=== PATIENT | male | born 1955 | race Caucasian/White ===

== ENCOUNTER 2023-02-10 05:57 | Day surgery (SDC) | payer MEDICARE, BC, SELFPAY ==
[2023-02-10] VITALS (7 sets, daily range): BP systolic 117–158; BP diastolic 68–103; PULSE 61–68; RESP 16–18; TEMP 36.7–37.2; O2SAT 93–99; BMI 28.0
--- NOTE | 2023-02-10 07:15 | PCM.HP.BLA ---
History and Physical Pt with new and growing lesions of the right arm and right leg. Personal history of skin cancer. [id number] Acct: [id number] Name: LIZZ MARMOLEJO Rep #: [id number] : 1955 Allergies ciprofloxacin [From Cipro] Allergy (Mild, Verified 01/11/23 10:50) Otherlevofloxacin [From Levaquin] Allergy (Mild, Verified 01/11/23 10:50) Other Medications fluticasone 100 mcg-salmeterol 50 mcg/dose blistr powdr for inhalation (Advair Diskus) 1 inh inhalation BID 01/11/23 [History Confirmed 01/11/23] lisinopril 20 mg tablet 10 mg PO DAILY 01/11/23 [History Confirmed 01/11/23] metoprolol succinate 25 mg tablet,extended release 24 hr 25 mg PO DAILY 01/11/23 [History Confirmed 01/11/23] oxycodone 10 mg tablet 10 mg PO Q8H 01/11/23 [History Confirmed 01/11/23] PFSH Medical History Back pain Cancer of bladder Cancer of prostate Cancer of skin, squamous cell COPD (chronic obstructive pulmonary disease) Osteoarthritis Skin cancer, basal cell Surgical History (Updated 01/11/23 @ 10:42 by Rosario Ventura) H/O basal cell carcinoma excision H/O squamous cell carcinoma excision Social History (Updated 01/11/23 @ 10:45 by Rosario Ventura) Smoking Status: Former smoker smoking status stop date: 01/11/22 how long ago did patient quit smoking: pt states 1 year alcohol intake: never substance use type: marijuana Exam Const General: cooperative, healthy appearing, no acute distress and well developed Nutritional Appearance: well nourished Orientation: alert [facility] Head: normal to inspection, normocephalic and atraumatic Ears: hearing grossly normal bilaterally Nose: external nose normal Face and sinus: normal facial exam and face symmetric Mouth: lip normal Eyes General: appearance normal, both eyes and all related structures Eyelids: eyelids normal Pupils: PERRL EOM: EOM intact bilaterally Neck Neck: normal visual inspection and no lymphadenopathy Chest Chest palpation & inspection: normal inspection of the chest Resp Effort & Inspection: no cough Auscultation: clear to auscultation bilaterally Cardio Rate: regular rate Rhythm: regular rhythm Heart Sounds: S1 normal and S2 normal GI Inspection: normal to inspection Palpation: soft and nontender Skin Trauma: no lacerations or abrasions Other: Patient with a nodular hyperkeratotic lesion of the right lower leg medial to the anterior ambrocio. No ulceration is noted. Neuro General: patient alert, patient awake and patient oriented x3 Cognition: normal cognition Speech: speech normal Motor: muscle tone normal throughout Sensory Exam: no sensory deficits noted Extrem General: normal to inspection and no pedal edema Psych Appearance: grossly normal Affect: normal affect Speech and Movement: speech and movement normal Attitude: cooperative Judgment: judgment good Assessment & Plan Assessment/Plan (1) Neoplasm of uncertain behavior of skin: PLAN: Plan For excision lesions right arm and right leg
--- NOTE | 2023-02-10 07:30 | LES_PTH ---
PATIENT: LIZZ MARMOLEJO LOC: [facility] [place] U#:[id number] AGE/SX: 67/M ROOM: RE02/10/[address]: Dr. Natasha Huerta MD : 1955 BED: DIS: 02/10/2023 SPEC #: [id number] RECD: 02/10/23 11:08 STATUS: YAZMIN FRASERMarta #: [id number] CARLOS ENRIQUE: 02/10/23 07:[address]: Natasha Huerta DEPT: SURGICAL PATHOLOGY RECD BY: Deyanira Pepper Tissues: A - Skin of leg, NOS B - Skin of arm Procedures: Surgery Specimen Level IV HEADER OPERATION: Excision lesion lower leg, right arm PRE-OP DIAGNOSIS: Neoplasm of lesion lower leg, lesion right arm TISSUE SUBMITTED: A - Lesion right leg, B - Lesion right arm MICROSCOPIC DIAGNOSIS A. Lesion of right leg, biopsy: Consistent with cicatrix. Mild acanthosis and superficial chronic dermatitis. Hyperkeratosis. Mild elastosis. No evidence of malignancy. B. Lesion of right arm, biopsy: [place]. Focal chronic folliculitis. Actinic change and extensive solar elastosis. Focal hyperkeratosis. AM:rico 02/11/2023 MICROSCOPIC DESCRIPTION Slides are reviewed. GROSS DESCRIPTION A - Received in fixative is one container labeled with the patient's name and designated lesion right leg. The specimen consists of a light faust fragment of excised skin measuring 1.3 x 0.9 x 0.2 cm. The specimen is inked, serially sectioned and totally submitted in one cassette. B - Received in fixative is one container labeled with the patient's name and designated lesion right arm. The specimen consists of a light faust fragment of excised skin measuring 1.7 x 0.6 x 0.2 cm. The specimen is inked, serially sectioned and totally submitted in one cassette. / AM:rico 02/10/2023 TC:3 CPT: 04497 x2
[2023-02-10] MEDS: Lidocaine 1% /Epi 1:100 9 ML, Sodium Bicarbonate 1 MEQ OPERA.SITE (07:46)
--- NOTE | 2023-02-10 08:19 | DCINST_ITS ---
Discharge Instructions Diet Discharge Diet: No restrictions Activity Additional Activity Instructions:: Keep your right leg and right arm as much as possible to decrease bleeding and swelling. Dressing / Incision Additional Dressing/Incision Instructions:: May remove the dressing to shower, but apply antibiotic ointment, gauze, and wrap following this. Follow Up Care Please Follow Up With: Natasha Huerta MD Test Results: Test results from this visit will be discussed in further detail at your follow- up appointment, if applicable. Discharge Plan Admission Attending Provider: Ntaasha Huerta Primary Care Provider: STEPHANY WILSON Discharge Orders/Prescriptions Prescriptions: No Action fluticasone propion-salmeterol [Advair Diskus] 100-50 mcg/dose blister with device 1 inh inhalation BID benzonatate 100 mg capsule 100 mg PO BID PRN cetirizine [All Day Allergy (cetirizine)] 10 mg tablet 10 mg PO DAILY PRN cyclobenzaprine 10 mg tablet 10 mg PO BID PRN Patient Comments: TAKE 1 TABLET ONCE OR TWICE DAILY NEEDED FOR SPASMS hydroxyzine HCl 25 mg tablet 25 mg PO BID PRN lidocaine 5 % adhesive patch,medicated 1 patch topical DAILY Rx Instructions: leave on most painful area for up to 12 hrs lisinopril 10 mg tablet 10 mg PO DAILY lisinopril 20 mg tablet 20 mg PO DAILY methylprednisolone [Methylpred DP] 4 mg tablets,dose pack See Rx Instructions PO PER PKG DIR Rx Instructions: PO PER PKG DIR omeprazole 20 mg capsule,delayed release(DR/EC) 20 mg PO DAILY oxycodone-acetaminophen 5-325 mg tablet 1 tab PO Q8H PRN triamcinolone acetonide 0.1 % cream 1 applic topical DAILY cephalexin 500 mg capsule 500 mg PO BID Qty: 10 0RF Referrals / Follow Up: STEPHANY WILSON [Other] Disposition Disposition (needs filled in before D/C Order can be placed): Home, Self Care
--- NOTE | 2023-02-10 08:22 | OP.PCM_ITS ---
Report of Operation Date of Procedure: 02/10/23 Pre-Operative Diagnosis: lesion right arm and right leg Post-Operative Diagnosis: same Surgery/Procedure Performed:: Excision lesion right leg (1.5cm) and right arm (2.0cm). Surgeon: Natasha Huerta Type of Anesthesia: Local Special Medications: Buffered lidocaine with epi Specimen's removed: same Estimated Blood Loss (mL): minimal Description of Procedure: The procedure of excision lesion right lower arm and right leg were reviewed with the patient. Informed consent was obtained. The patient was brought to the operating room and placed on the operating room table in the supine position. The right arm and leg are prepped and draped in the usual sterile fashion. Buffered 1% lidocaine with epinephrine is used for local anesthetic. This is instilled with a 30-gauge needle. An elliptical incision is made over the lesion of the arm and leg. A full- thickness excision is performed. Hemostasis is controlled with cautery. The incisions are then closed with interrupted silk suture. On the right arm, an additional running chromic suture was used to further approximate the wound edges. Xeroform gauze and a Coban wrap was used to dress both sites. He tolerated the procedure well and was taken to the recovery area in an awake and stable condition. Needle and sponge counts are correct. Complications none Admit VTE Documentation VTE Mechan Device Prophylaxis: None Reason prophylaxis not ordered:: Treatment Not Indicated
== END 2023-02-10 08:38 | disposition home or self-care (01) ==
LOC: SDC 05:59 → AC 06:01
PROVIDERS: Referring Provider Plastic Surgery; Visit Provider Plastic Surgery
PROC: (CPT 11402; principal; 2023-02-10 07:15)
DX: L57.8 Other skin changes due to chronic exposure to nonionizing radiation (principal); J44.9 Chronic obstructive pulmonary disease, unspecified; L30.9 Dermatitis, unspecified; L70.0 Acne vulgaris; L83 Acanthosis nigricans; L73.9 Follicular disorder, unspecified; L90.5 Scar conditions and fibrosis of skin; Z87.891 Personal history of nicotine dependence; Z85.828 Personal history of other malignant neoplasm of skin
CPT/HCPCS: 11402 ×2; 88305

== ENCOUNTER → 2023-03-22 | Outpatient (CLI) | payer MEDICARE, SELFPAY ==
--- NOTE | 2023-03-22 10:00 | MRI_ITS ---
STUDY: MR PROSTATE GLAND/ PELVIS WITH T WITHOUT CONTRAST REASON FOR EXAM: Male, 67 years old. eval disease extent, planning for XRT -- please compare to prior TECHNIQUE: Standardized fat and water weighted pulse sequences were obtained in all 3 orthogonal planes, pre-and post contrast administration. 17ml clariscan was administered for the contrast portion of the examination. COMPARISON: MRI of the prostate dated November 24, 2022. FINDINGS: Prostate gland volume/size: 6.32 x 3.81 x 3.88 cm Anterior fibromuscular stroma: Intact Peripheral zone: Infiltrated with lobular low signal tumor on both the right and left sides which demonstrate diffuse enhancement and abnormal diffusion weighted signal. The enhancing malignant mass centered in the right peripheral and transitional zone measures 3.42 x 2.14 cm in diameter. The malignant nodule in the left transitional zone measures 1.20 cm in diameter. Central zone: Diffusely heterogeneous and abnormal. Transitional zone: Diffusely heterogeneous and abnormal infiltrated with tumor Prostate capsule: Extension of a moderate to large focus of tumor material out of the left posterior side of the prostate gland into the left pelvic sidewall region. The extruded left pelvic sidewall tumor from the prostate gland measures 3.44 x 1.23 cm. The enlarged tumor infiltrating lobular posterior aspect of the prostate gland abuts the anterior aspect of the rectum but does not appear to directly invade the rectal wall. Seminal vesicles: The midline and several of the right side seminal vesicles is infiltrated with low to intermediate signal tumor. Several of the left-sided seminal vesicles are moderately dilated and distended with fluid likely due to obstruction and partial tumor infiltration. Low signal tumor is seen extending from the apex of the prostate into the opening of the left seminal vesicles and the midline, see image #10/30 series 8. Pelvic sidewall lymphadenopathy: Bony structures: No visualized lytic or blastic lesion or marrow edema in the osseous structures on this exam. No demonstrated enhancing lesion of the bony structures, however correlation with nuclear medicine bone scan is recommended Normal urinary bladder. Normal visualized small intestine. Normal visualized colon. There is no pelvic fluid. There is no pelvic mass lesion or lymphadenopathy. Normal abdominal wall. Small fat-containing inguinal hernias are present bilaterally. MRI/Pelvis W/WO Contrast IMPRESSION: Diffusely infiltrated malignant tumor material throughout the prostate gland with extension to the left side of the capsule and extension into the seminal vesicles. 1. Extension of a moderate to large focus of tumor material out of the left posterior side of the prostate gland into the left pelvic sidewall region. The extruded left pelvic sidewall tumor from the prostate gland measures 3.44 x 1.23 cm. The enlarged tumor infiltrating lobular posterior aspect of the prostate gland abuts the anterior aspect of the rectum but does not appear to directly invade the rectal wall. 2. PI-RADS 5: very high (clinically significant cancer is highly likely to be present) Reference information: Normal prostate tissue Benign prostatic hypertrophy cancer/tumor - low signal peripheral , transitional, and central zones malignancy appears as bright on DWI and low signal on ADC map Prostate imaging-reporting and data system (PI-RADS) PI-RADS 1: very low (clinically significant cancer is highly unlikely to be present) PI-RADS 2: low (clinically significant cancer is unlikely to be present) PI-RADS 3: intermediate (the presence of clinically significant cancer is equivocal) PI-RADS 4: high (clinically significant cancer is likely to be present) PI-RADS 5: very high (clinically significant cancer is highly likely to be present) PI-RADS X: component of exam technically inadequate or not performed Prostate malignancy distribution: Peripheral zone: 70-80% Transitional zone: 10-20% Central zone: 5% or less Electronically Signed: Bentley Macdonald MD at 12:14 EST ,
--- NOTE | 2023-03-22 10:04 | CT_ITS ---
EXAM: CT CHEST WITH INTRAVENOUS CONTRAST CLINICAL INDICATION: lung mass seen on CT for planning radiation -- eval for lung pathology TECHNIQUE: Helically acquired images were obtained of the chest with intravenous contrast. This CT exam was performed using one or more of the following dose reduction techniques: automated exposure control, adjustment of the mA and/or kV according to patient size, and/or use of iterative reconstruction technique. CONTRAST: IV 100mL Isovue-300 RADIATION DOSE: CTDIvol = 13.73 mGy, DLP = 446.98 mGy-cm COMPARISON: No relevant prior studies available. FINDINGS: LUNGS AND PLEURAL SPACES: Hyperexpansion of the lungs. Severe centrilobular emphysema. 1.1 cm calcified granuloma of the posterior right lower lobe. 8.2 cm focal fat collection in the posterior left lung base consistent with Bochdalek hernia. No soft tissue mass. No pneumothorax. No infiltrates. No effusion. HEART: Unremarkable. Heart size is normal. No pericardial effusion. MEDIASTINUM: Unremarkable. No mediastinal or hilar adenopathy. Esophagus is unremarkable. No hiatal hernia. THYROID: Unremarkable. No thyroid lesions. BONES/JOINTS: Degenerative changes throughout the spine. VASCULATURE: Unremarkable. Thoracic aorta is non-dilated. No thoracic aortic dissection. No obvious central pulmonary embolism although this study was not performed with the pulmonary embolism protocol. CT/Chest WITH Contrast IMPRESSION: 1. Severe centrilobular emphysema. 2. Calcified granuloma in the right lower lobe. 3. Large fatty mass in the posterior left lower hemithorax consistent with Bochdalek hernia. Electronically Signed: Kenyon Mary MD at 18:35 EST ,
[2023-03-22 15:54] LABS: CREATININE FINGERSTICK < 0.9 mg/dL (0.70-1.30); EGFR FINGERSTICK > 60.0000 mL/min (>60)
== END | disposition home or self-care (01) ==
LOC: MRI 09:56
PROVIDERS: Referring Provider Student in an Organized Health Care Education/Training Program; Visit Provider Student in an Organized Health Care Education/Training Program
DX: C61 Malignant neoplasm of prostate (principal); R91.8 Other nonspecific abnormal finding of lung field
CPT/HCPCS: 71260; 72197; A9575; Q9967

== ENCOUNTER 2023-05-20 10:10 | Day surgery (SDC) | payer MEDICARE, SELFPAY ==
--- NOTE | 2023-05-20 | LES_PTH ---
PATHOLOGY RESULTS PATIENT: LIZZ MARMOLEJO LOC: [facility] – [place] U#:[id number] AGE/SX: 67/M ROOM: RE05/20/[address]: Dr. 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 SJ:rico 05/20/2023 MICROSCOPIC DIAGNOSIS Skin lesion of left shoulder, re-excision: Cicatrix. Actinic keratosis with mild and focal moderate atypia. Solar elastosis. No evidence of carcinoma. AM:rico 05/23/2023 COMMENT Reference is made to the patient's previous left clavicular neck shave biopsy ([facility] [id number]). Case has been reviewed in consultation with Dr. Longo who concurs with the above diagnosis. IDC:[email or web address] MICROSCOPIC DESCRIPTION Slides are reviewed. GROSS DESCRIPTION Received fresh for frozen section diagnosis labeled with the patient's name is a specimen designated squamous cell carcinoma of left shoulder . The specimen consists of an ovoid piece of faust-white skin measuring 1.5 x 1.0 x 0.3 cm. The specimen is oriented. The specimen is inked as follows: 12 o'clock - yellow, 6 o'clock - green, 3 o'clock - black and 9 o'clock - blue. The specimen is serially sectioned and submitted entirely for frozen section diagnosis in two cassettes as follows: 1 - tips, 12 o'clock and 6 o'clock tips, 2 - rest of the specimen. / OSMEL:rico 05/20/2023 TC:? CPT: 21182, 21857, 23590
--- OUTSIDE RECORDS SUMMARY | 2023-05-20 10:18 | XMS RPT_ITS | CCD ---
Author Name Unknown Address [id number] [place] [address] Organization [facility] Care Team Providers Care Barrel Assembly Inspector Name Role Phone Unavailable Unavailable Unavailable Fortune, Skye Keke Unavailable Unavailable Fortune, Skye Keke Unavailable Unavailable Delong, Malik W Unavailable Unavailable Delong, Malik W Unavailable Unavailable Delong, Malik W Unavailable Unavailable Delong, Malik W Unavailable Unavailable Delong, Malik Carpenter Attending Unavailable Ritenour, Mike E Primary Care Unavailable Delong, Malik Carpenter Attending Unavailable Ritenour, Mike E Primary Care Unavailable Delong, Malik Carpenter Attending Unavailable Ritenour, Mike E Primary Care Unavailable Delong, Malik Carpenter Admitting Unavailable Delong, Malik Carpenter Attending Unavailable Ritenour, Mike E Primary Care Unavailable Delong, Malik Carpenter Attending Unavailable Ritenour, Mike E Primary Care Unavailable Delong, Malik W Attending Unavailable Ritenour, Mike E Primary Care Unavailable Fortune, Skye Primary Care Provider Malik Delong Primary Care Provider Mike Tinsley Unavailable Unavailable Unavailable Fortune MAPPING PILOT-IT INTERN, Skye Primary Care Provider Fortune MAPPING PILOT-IT INTERN, Skye Primary Care Provider GHAZOUL, NATASHA Referring Unavailable GHAZOUL, NATASHA Attending Unavailable FORTUNE, SKYE Primary Care Unavailable GHAZOUL, NATASHA Admitting Unavailable GHAZOUL, NATASHA Referring Unavailable GHAZOUL, NATASHA Attending Unavailable GHAZOUL, NATASHA Admitting Unavailable FORTUNE, SKYE Primary Care Unavailable GHAZOUL, NATASHA Attending Unavailable SELF, SELF Referring Unavailable FORTUNE, SKYE Primary Care Unavailable GHAZOUL, NATASHA Attending Unavailable SELF, SELF Referring Unavailable FORTUNE, SKYE Primary Care Unavailable GHAZOUL, NATASHA Attending Unavailable SELF, SELF Referring Unavailable FORTUNE, SKYE Primary Care Unavailable GHAZOUL, NATASHA Attending Unavailable SELF, SELF Referring Unavailable FORTUNE, SKYE Primary Care Unavailable SELF, SELF Referring Unavailable FORTUNE, SKYE Primary Care Unavailable GHAZOUL, NATASHA Attending Unavailable SELF, SELF Referring Unavailable GHAZOUL, NATASHA Attending Unavailable FORTUNE, SKYE Primary Care Unavailable SELF, SELF Referring Unavailable GHAZOUL, NATASHA Attending Unavailable FORTUNE, SKYE Primary Care Unavailable SELF, SELF Referring Unavailable GHAZOUL, NTAASHA Attending Unavailable CHAVEZ, SUSAN Primary Care Unavailable CHAVEZ, SUSAN Primary Care Unavailable FORTUNE, SKYE Primary Care Unavailable Unavailable Unavailable Sindi VERAS, Malik Brand Primary Care Provider [phone] FARIDEH BARNES Referring Unavaila ble BARNESFARIDEH GARRETT Attending Unavaila ble CHAVEZ, SUSAN Primary Care Unavailable Chavez DANIEL, Susan Primary Care Provider [phone] LATESHA SCHAEFER II Referring Unavailabl e LATESHA SCHAEFER II Attending Unavailabl e MIKE TINSLEY Primary Care Unavailabl e CHAPARRO WILSON Attending CHAPARRO Vega Referring Unavai gabriele CHAVEZ, SUSAN Primary Care Unavailable DELONGMALIK Heath Admitting Unavailable DELONG, MALIK BRAND Primary Care Unavailable DELONGMALIK Heath Admitting Unavailable DELONG, MALIK RAMIRO Primary Care Unavailable FARIDEH BARNES Referring Unavaila ble CHAVEZ, SUSAN Primary Care Unavailable FARIDEH BARNES Attending Unavaila ble BARNESFARIDEH GARRETT Referring Unavaila ble CHAVEZ, SUSAN Primary Care Unavailable FARIDEH BARNES Attending Unavaila ble CHAVEZ, SUSAN Primary Care Unavailable FARIDEH BARNES Attending Unavaila ble BARNESFARIDEH GARRETT Referring Unavaila ble BARNESFARIDEH Attending Unavaila ble CHAVEZ, SUSAN Primary Care Unavailable FARIDEH BARNES Referring Unavaila ble CHAVEZ, SUSAN Primary Care Unavailable DELONG, MALIK BRAND Admitting Unavailable DELONG, MALIK BRAND Primary Care Unavailable HELLINGER, CHAPARRO SOLORIO Admitting Unavai lable HELLINGER, CHAPARRO SOLORIO Referring Unavai lable CHAVEZ, SUSAN Primary Care Unavailable Ritenour, Dr. Mike Villanueva Primary Care Unavai lable Delong II, Dr. Malik Brand Referring Unavai lable Delong II, Dr. Malik Brand Attending Unavai lable BARNES, FARIDEH CABRAL Attending Unavaila ble CHAVEZ, SUSAN Admitting Unavailable CHAVEZ, SUSAN Primary Care Unavailable CHAVEZ, SUSAN Referring Unavailable BARNSE, FARIDEH CABRAL Attending Unavaila ble CHAVEZ, SUSAN Primary Care Unavailable Delong, Malik Attending Unavailable Ritenour, Dr. Mike Villanueva Primary Care Unavai lable Delong, Malik Referring Unavailable Ritenour, Dr. Mike Villanueva Primary Care Unavai lable Delong, Malik Attending Unavailable Delong, Malik Referring Unavailable Delong, Malik Attending Unavailable Ritenour, Dr. Mike Villanueva Primary [facility] Unavai lable Delong, Malik Referring Unavailable Ritenour, Dr. Mike Villanueva Primary [facility] Unavai lable Delong, Malik Attending Unavailable Delong, Malik Referring Unavailable Delong, Malik Attending Unavailable Ritenour, Dr. Mike Villanueva Primary [facility] Unavai lable Delong, Malik Referring Unavailable Ritenour DO, Mike Villanueva Primary Care Provider MALIK DELONG Admitting Unavailable DELONG, MALIK Carpenter Attending Unavailable RITENOUR, MIKE VILLANUEVA Primary Care Unavailabl e Allergies Allergy Classification Reported Allergen(s) Allergy Type Date of Onset Reaction(s) Facility (1 source) No Known Medication Allergies; Translations: [No Known Medication Allergies] Propensity to adverse reactions to drug (disorder) [facility] Repository (20 sources) levoFLOXacin; Translations: [Levaquin] Drug Allergy 1 Other (See Comments), [facility] (20 sources) Ciprofloxacin; Translations: [ciprofloxacin] Drug Allergy 2 Unknown, [facility] (6 sources) Ciprofloxacin; Translations: [CIPROFLOXACIN HCL] Drug Allergy 3 Other (See Comments) [facility] Repository (4 sources) levoFLOXacin; Translations: [LEVOFLOXACIN] Drug Allergy 1 [facility] Repository Medications Current Medications Medication Drug Class(es) Dates Sig (Normalized) Sig (Original) acetaminophen 325 mg / HYDROcodone bitartrate 5 mg oral tablet (1 source) Opioid Agonist Start: 03-01-2023 take 1 tablet by mouth every six hours for pain HYDROcodone-aceta minophen ([place]) 5-325 mg tablet Indications: Prostate cancer (CMS/HCC) Take 1 tablet by mouth every 6 hours if needed for severe pain (7 - 10). 10 tablet 0 03/01/2023 Active Completed/Discontinued Medications Medication Drug Class(es) Dates Sig (Normalized) Sig (Original) acetaminophen 325 mg oral tablet (1 source) Start: 03-01-2023 End: 03-01-2023 acetaminophen (Tylenol) tablet 975 mg acetaminophen 325 mg / oxyCODONE hydrochloride 5 mg oral tablet (12 sources) Opioid Agonist End: 02-28-2023 oxyCODONE-acetamin ophen (Percocet) 5-325 mg tablet Take by mouth. 0 02/28/2023 Discontinued (Duplicate order) amLODIPine 5 mg oral tablet (4 sources) Dihydropyridine Calcium Channel Benita Start: 11-08-2022 End: 02-28-2023 amLODIPine (Norvasc) 5 mg tablet Problems Active Problems Problem Classification Problem Date Documented Da te Episodic/Chronic Cancer of bladder (20 sources) H/O: malignant neoplasm; Translations: [Personal history of malignant neoplasm of bladder] Onset: 01-18-2023 01-18-2023 Episodic Cancer of prostate (8 sources) Malignant tumor of prostate; Translations: [Malignant neoplasm of prostate] Onset: 02-18-2023 03-01-2023 Chronic Cataract (2 sources) Nuclear senile cataract; Translations: [Age-related nuclear cataract, unspecified eye] Onset: 02-07-2015 01-24-2023 Chronic Essential hypertension (2 sources) Essential (primary) hypertension; Translations: [Essential (primary) hypertension] Onset: 12-20-2022 Chronic Hyperplasia of prostate (13 sources) Urinary frequency due to benign prostatic hypertrophy; Translations: [Hypertrophy (benign) of prostate with urinary obstruction and other lower urinary tract symptoms (LUTS)] Onset: 01-18-2023 01-18-2023 Chronic Other aftercare (11 sources) Antibiotic prophylaxis indicated; Translations: [Long-term (current) use of antibiotics] Episodic Other and unspecified benign neoplasm (2 sources) Benign neoplasm of skin; Translations: [Other benign neoplasm of skin, unspecified] Episodic Other diseases of bladder and urethra (13 sources) Urethral stricture; Translations: [Urethral stricture, unspecified] Onset: 01-18-2023 01-18-2023 Episodic Other lower respiratory disease (1 source) Dyspnea; Translations: [Shortness of breath] Episodic Other male genital disorders (13 sources) Male erectile dysfunction, unspecified; Translations: [Erectile dysfunction] Onset: 01-18-2023 01-18-2023 Chronic Other non-epithelial cancer of skin (4 sources) Basal cell carcinoma of face; Translations: [Basal cell carcinoma (BCC) of skin of face, unspecified part of face] Onset: 01-22-2020 01-22-2020 Chronic Other screening for suspected conditions (not mental disorders or infectious disease) (17 sources) Raised prostate specific antigen; Translations: [Elevated prostate specific antigen [PSA]] Onset: 02-25-2022 Episodic Other skin disorders (2 sources) Skin lesion; Translations: [Skin Lesion] Onset: 03-31-2022 Episodic Substance-related disorders (13 sources) Smoker; Translations: [Tobacco use disorder] Onset: 01-24-2023 01-24-2023 Chronic Unclassified (2 sources) Post Op Visit; Translations: [Post Op Visit] Onset: 05-05-2022 Past or Other Problems Problem Classification Problem Date Documented Da te Episodic/Chronic Blindness and vision defects (6 sources) Hypermetropia; Translations: [Hypermetropia, unspecified eye] Onset: 02-07-2015 01-24-2023 Episodic Cardiac dysrhythmias (7 sources) Palpitations; Translations: [Palpitations] Onset: 05-31-2022 Episodic Neoplasms of unspecified nature or uncertain behavior (11 sources) Neoplasm of uncertain behavior of skin; Translations: [Neoplasm of uncertain behavior of skin] Onset: 01-01-2022 Episodic Nonspecific chest pain (7 sources) Chest pain; Translations: [Chest pain, unspecified] Onset: 05-31-2022 Episodic Other eye disorders (2 sources) Disorder of lacrimal gland; Translations: [Dry eye syndrome of bilateral lacrimal glands] Onset: 02-07-2015 01-24-2023 Episodic Other lower respiratory disease (6 sources) Shortness of breath; Translations: [Shortness of breath] Onset: 05-31-2022 Episodic Other non-epithelial cancer of skin (20 sources) 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; Translations: [Squamous cell carcinoma of skin of right lower limb, including hip] Onset: 01-22-2020 Episodic Results Test Name Value Interpretation Reference Range Facil ity Vital Signs Date Time Vital Sign Value Performing Clinician Facility 03-01-2023 09:30-0400 Diastolic blood pressure 82 mm[Hg] Malik Delong MD Work Phone: [facility] 03-01-2023 09:30-0400 Respiratory rate 16 /min Malik Delong MD Work Phone: [facility] 03-01-2023 09:30-0400 Systolic blood pressure 140 mm[Hg] Malik Delong MD Work Phone: 2(260)243-259707 [place] [address] 03-01-2023 09:15-0400 Heart rate 62 /min Malik Delong MD Work Phone: 3(117)464-821707 [place] [address] 03-01-2023 09:00-0400 SaO2% (BldA) [Mass fraction] 96 % Malik Delong MD Work Phone: 5(208)846-946307 [place] [address] 03-01-2023 08:56-0400 Body temperature 97.39 [degF] Malik Delong MD Work Phone: [facility] 03-01-2023 06:52-0400 Body height 180.3 cm Malik Delong MD Work Phone: [facility] 03-01-2023 06:52-0400 Body mass index (BMI) [Ratio] 27.12 kg/m2 Malik Delong MD Work Phone: [facility] 03-01-2023 06:52-0400 Body weight 88.2 kg Malik Delong MD Work Phone: 4(151)652-908229 [address] 01-17-2023 07:47-0400 Body mass index (BMI) [Ratio] 28.61 kg/m2 Mike Tinsley Work Phone: FV-Dbwvbrs-Mbnunpkp [facility] 232 DO Work Phone: 01-17-2023 07:47-0400 Body surface area Derived from formula 2.08 m2 Mike Tinsley Work Phone: DM-Kfjmxzx-Weylkwvt [facility] 232 DO Work Phone: 01-17-2023 07:47-0400 Body weight 90.44 kg Mike Tinsley Work Phone: UY-Zwsrwoz-Swakbhbg [facility] 232 DO Work Phone: 01-17-2023 07:47-0400 Respiratory rate 18 /min Mike Tinsley Work Phone: KS-Gzitinl-Vhxfnvfm [facility] 232 DO Work Phone: 12-28-2022 08:20-0400 Body height 180.1 cm Malik Delong MD Work Phone: [facility] 12-28-2022 08:20-0400 Body mass index (BMI) [Ratio] 27.44 kg/m2 Malik Delong MD Work Phone: [facility] 12-28-2022 08:20-0400 Body weight 89 kg Malik Delong MD Work Phone: [facility] 12-01-2022 08:41-0400 Body mass index (BMI) [Ratio] 28.28 kg/m2 Mike Tinsley Work Phone: LX-Ywenheo-Lwpyokwu d Work Phone: 12-01-2022 08:41-0400 Body surface area Derived from formula 2.07 m2 Mike Tinsley Work Phone: TE-Lopzyce-Qvumooli d Work Phone: 12-01-2022 08:41-0400 Body weight 89.42 kg Mike Tinsley Work Phone: OK-Pxpfljm-Tgqjotaw d Work Phone: 11-10-2022 07:33-0400 Body mass index (BMI) [Ratio] 27.71 kg/m2 Mike Tinsley Work Phone: QR-Osqrglb-Sdqnhgkb [facility] 232 DO Work Phone: 11-10-2022 07:33-0400 Body surface area Derived from formula 2.06 m2 Mike Tinsley Work Phone: MF-Kjjsytg-Rtlcxuzw [facility] 232 DO Work Phone: 11-10-2022 07:33-0400 Body weight 87.6 kg Mike Tinsley Work Phone: GC-Ikebhop-Iymjkmbg [facility] 232 DO Work Phone: 11-10-2022 07:33-0400 Diastolic blood pressure 104 mm[Hg] Mike Tinsley Work Phone: JZ-Iqjllzf-Gdyorxby [facility] 232 DO Work Phone: 11-10-2022 07:33-0400 Heart rate 58 /min Mike Tinsley Work Phone: TP-Gpoylsf-Xbyiqhub [facility] 232 DO Work Phone: 11-10-2022 07:33-0400 Systolic blood pressure 146 mm[Hg] Mike Tinsley Work Phone: [facility] 232 DO Work Phone: 05-12-2022 07:55-0500 Body height 177.8 cm Mike Tinsley Work Phone: WI-Ydnfybx-Ebsvkzf Work Phone: 05-12-2022 07:55-0500 Body mass index (BMI) [Ratio] 26.89 kg/m2 Mike Tinsley Work Phone: MC-Eptyzpa-Ueqgvls Work Phone: 05-12-2022 07:55-0500 Body surface area Derived from formula 2.03 m2 Mike Tinsley Work Phone: OI-Bnztumf-Qpyizcu Work Phone: 05-12-2022 07:55-0500 Body weight 85 kg Mike Tinsley Work Phone: UQ-Uhsgnrj-Wjutrbb Work Phone: 05-12-2022 07:55-0500 Diastolic blood pressure 72 mm[Hg] Mike Tinsley Work Phone: TD-Zriikfp-Posjjab Work Phone: 05-12-2022 07:55-0500 Heart rate 73 /min Mike Tinsley Work Phone: DE-Pizqedd-Muuaeqc Work Phone: 05-12-2022 07:55-0500 Systolic blood pressure 129 mm[Hg] Mike Tinsley Work Phone: PJ-Bdepacf-Cwjljit Work Phone: 03-31-2022 11:12-0500 Body height 180.3 cm Natasha Huerta MD Work Phone: [facility] 03-31-2022 11:12-0500 Body mass index (BMI) [Ratio] 24.97 kg/m2 Natasha Huerta MD Work Phone: [facility] 03-31-2022 11:12-0500 Body temperature 97.9 [degF] Natasha Huerta MD Work Phone: [facility] 03-31-2022 11:12-0500 Body weight 81.19 kg Natasha Huerta MD Work Phone: [facility] 03-04-2022 15:08-0400 Body mass index (BMI) [Ratio] 25.83 kg/m2 Mike Tinsley Work Phone: GV-Ngnxwbg-Fbxeuivk HC 232 DO Work Phone: 03-04-2022 15:08-0400 Body surface area Derived from formula 2 m2 Mike Tinsley Work Phone: AF-Ehldsbe-Wfypbafd HC 232 DO Work Phone: 03-04-2022 15:08-0400 Body weight 81.65 kg Mike Tinsley Work Phone: [facility] 232 DO Work Phone: 03-04-2022 15:08-0400 Diastolic blood pressure 96 mm[Hg] Mike Tinsley Work Phone: [facility] 232 DO Work Phone: 03-04-2022 15:08-0400 Heart rate 72 /min Mike Tinsley Work Phone: [facility] 232 DO Work Phone: 03-04-2022 15:08-0400 Systolic blood pressure 154 mm[Hg] Mike Tinsley Work Phone: [facility] 232 DO Work Phone: 01-27-2022 13:32-0400 Body height 180.3 cm Natasha Huerta MD Work Phone: 6(640)867-991696 [place] [address] 01-27-2022 13:32-0400 Body mass index (BMI) [Ratio] 25.38 kg/m2 Natasha Huerta MD Work Phone: 1(398)167-208196 [place] [address] 01-27-2022 13:32-0400 Body temperature 98.1 [degF] Natasha Huerta MD Work Phone: [facility] 01-27-2022 13:32-0400 Body weight 82.56 kg Natasha Huerta MD Work Phone: [facility] 01-27-2022 13:32-0400 Diastolic blood pressure 76 mm[Hg] Natasha Huerta MD Work Phone: [facility] 01-27-2022 13:32-0400 Heart rate 99 /min Natasha Huerta MD Work Phone: [facility] 01-27-2022 13:32-0400 Systolic blood pressure 131 mm[Hg] Natasha Huerta MD Work Phone: 0(208)779-741496 [place] [address] 01-13-2022 14:24-0400 Body height 180.3 cm Natasha Huerta MD Work Phone: 6(031)807-033396 [place] [address] 01-13-2022 14:24-0400 Body mass index (BMI) [Ratio] 25.38 kg/m2 Natasha Huerta MD Work Phone: 4(085)259-956896 [place] [address] 01-13-2022 14:24-0400 Body temperature 98.49 [degF] Natasha Huerta MD Work Phone: 5(068)583-863296 [place] [address] 01-13-2022 14:24-0400 Body weight 82.56 kg Natasha Huerta MD Work Phone: 7(737)480-537496 [place] [address] 01-13-2022 14:24-0400 Diastolic blood pressure 96 mm[Hg] Natasha Huerta MD Work Phone: 4(039)337-526896 [place] [address] 01-13-2022 14:24-0400 Heart rate 82 /min Natasha Huerta MD Work Phone: 3(562)396-140696 [place] [address] 01-13-2022 14:24-0400 Systolic blood pressure 149 mm[Hg] Natasha Huerta MD Work Phone: 5(216)701-320296 [place] [address] 01-01-2022 13:50-0400 Diastolic blood pressure 93 mm[Hg] Natasha Huerta MD Work Phone: 0(249)971-484896 [place] [address] 01-01-2022 13:50-0400 Heart rate 76 /min Natasha Huerta MD Work Phone: 9(332)724-171696 [place] [address] 01-01-2022 13:50-0400 Respiratory rate 16 /min Natasha Huerta MD Work Phone: 8(738)458-869196 [place] [address] 01-01-2022 13:50-0400 SaO2% (BldA) [Mass fraction] 92 % Natasha Huerta MD Work Phone: 7(071)140-783196 [place] [address] 01-01-2022 13:50-0400 Systolic blood pressure 160 mm[Hg] Natasha Huerta MD Work Phone: 2(197)770-250496 [place] [address] 01-01-2022 13:35-0400 Body temperature 97.9 [degF] Natasha Huerta MD Work Phone: 3(943)605-269596 [place] [address] 01-01-2022 12:05-0400 Body height 180.3 cm Natasha Huerta MD Work Phone: 7(143)981-852196 [place] [address] 12-22-2021 09:10-0400 Body height 180.3 cm Natasha Huerta MD Work Phone: 5(762)527-176496 [place] [address] 12-22-2021 09:10-0400 Body mass index (BMI) [Ratio] 26.22 kg/m2 Natasha Huerta MD Work Phone: 4(112)852-613996 [place] [address] 12-22-2021 09:10-0400 Body temperature 98.6 [degF] Natasha Huerta MD Work Phone: 3(892)470-361096 [place] [address] 12-22-2021 09:10-0400 Body weight 85.28 kg Natasha Huerta MD Work Phone: 0(204)878-005496 [place] [address] 12-22-2021 09:10-0400 Diastolic blood pressure 75 mm[Hg] Natasha Huerta MD Work Phone: 9(533)834-230396 [place] [address] 12-22-2021 09:10-0400 Heart rate 88 /min Natasha Huerta MD Work Phone: 3(568)599-300496 [place] [address] 12-22-2021 09:10-0400 Systolic blood pressure 143 mm[Hg] Natasha Huerta MD Work Phone: 7(239)342-082396 [place] [address] 11-18-2021 09:49-0400 Body height 180.3 cm Natasha Huerta MD Work Phone: 0(468)155-496696 [place] [address] 11-18-2021 09:49-0400 Body mass index (BMI) [Ratio] 25.66 kg/m2 Natasha Huerta MD Work Phone: 2(383)912-380796 [place] [address] 11-18-2021 09:49-0400 Body temperature 97.7 [degF] Natasha Huerta MD Work Phone: [facility] 11-18-2021 09:49-0400 Body weight 83.46 kg Natasha Huerta MD Work Phone: [facility] 11-18-2021 09:49-0400 Diastolic blood pressure 92 mm[Hg] Natasha Huerta MD Work Phone: [facility] 11-18-2021 09:49-0400 Heart rate 75 /min Natasha Huerta MD Work Phone: [facility] 11-18-2021 09:49-0400 Systolic blood pressure 161 mm[Hg] Natasha Huerta MD Work Phone: [facility] 11-12-2021 15:46-0400 Body mass index (BMI) [Ratio] 26.54 kg/m2 Mike Tinsley Work Phone: [facility] 232 DO Work Phone: 11-12-2021 15:46-0400 Body surface area Derived from formula 2.02 m2 Mike Tinsley Work Phone: DA-Ymvvozs-Zmjbdjmi HC 232 DO Work Phone: 11-12-2021 15:46-0400 Body weight 83.92 kg Mike Tinsley Work Phone: IH-Xrbwbnk-Xqnxbole HC 232 DO Work Phone: 11-12-2021 15:46-0400 Diastolic blood pressure 77 mm[Hg] Mike Tinsley Work Phone: TX-Vsrgkhm-Xttengwz [facility] 232 DO Work Phone: 11-12-2021 15:46-0400 Respiratory rate 18 /min Mike Tinsley Work Phone: GM-Ocelstv-Lughhudw [facility] 232 DO Work Phone: 11-12-2021 15:46-0400 Systolic blood pressure 150 mm[Hg] Mike Tinsley Work Phone: [facility] 232 DO Work Phone: 2021 10:43-0400 Body height 180.3 cm Natasha Huerta MD Work Phone: [facility] 2021 10:43-0400 Body mass index (BMI) [Ratio] 25.66 kg/m2 Natasha Huerta MD Work Phone: 2(236)769-091982 [place] [address] 2021 10:43-0400 Body temperature 97.2 [degF] Natasha Huerta MD Work Phone: 2(577)125-375582 [place] [address] 2021 10:43-0400 Body weight 83.46 kg Natasha Huerta MD Work Phone: 6(375)664-585296 [place] [address] 2021 10:43-0400 Diastolic blood pressure 74 mm[Hg] Natasha Huerta MD Work Phone: 4(675)303-793096 [place] [address] 2021 10:43-0400 Heart rate 68 /min Natasha Huerta MD Work Phone: [facility] 2021 10:43-0400 Systolic blood pressure 136 mm[Hg] Natasha Huerta MD Work Phone: [facility] 10-22-2021 08:57-0400 Diastolic blood pressure 80 mm[Hg] Natasha Huerta MD Work Phone: [facility] 10-22-2021 08:57-0400 Systolic blood pressure 132 mm[Hg] Natasha Huerta MD Work Phone: 8(825)535-125782 [place] [address] 10-22-2021 08:39-0400 Heart rate 68 /min Natasha Huerta MD Work Phone: 9(355)556-585782 [place] [address] 10-22-2021 08:39-0400 Respiratory rate 20 /min Natasha Huerta MD Work Phone: 5(707)550-749882 [place] [address] 10-22-2021 08:39-0400 SaO2% (BldA) [Mass fraction] 95 % Natasha Huerta MD Work Phone: [facility] 10-22-2021 07:02-0400 Body height 180.3 cm Natasha Huerta MD Work Phone: [facility] 10-22-2021 07:02-0400 Body mass index (BMI) [Ratio] 25.8 kg/m2 Natasha Huerta MD Work Phone: [facility] 10-22-2021 07:02-0400 Body weight 83.92 kg Natasha Huerta MD Work Phone: [facility] 10-22-2021 06:58-0400 Body temperature 97.7 [degF] Natasha Huerta MD Work Phone: [facility] 08-06-2021 15:47-0400 Body height 177.8 cm Mike Tinsley Work Phone: [facility] 232 DO Work Phone: 08-06-2021 15:47-0400 Body mass index (BMI) [Ratio] 26.69 kg/m2 Mike Tinsley Work Phone: [facility] 232 DO Work Phone: 08-06-2021 15:47-0400 Body surface area Derived from formula 2.02 m2 Mike Tinsley Work Phone: [facility] 232 DO Work Phone: 08-06-2021 15:47-0400 Body weight 84.37 kg Mike Tinsley Work Phone: [facility] 232 DO Work Phone: 08-06-2021 15:47-0400 Diastolic blood pressure 103 mm[Hg] Mike Tinsley Work Phone: [facility] 232 DO Work Phone: 08-06-2021 15:47-0400 Heart rate 47 /min Mike Tinsley Work Phone: WK-Ushliog-Irjcwett [facility] 232 DO Work Phone: 08-06-2021 15:47-0400 Systolic blood pressure 166 mm[Hg] Mike Tinsley Work Phone: WY-Apkmppy-Mfmunrfk [facility] 232 DO Work Phone: 07-08-2021 07:49-0500 Body height 177.8 cm Mike Tinsley Work Phone: WR-Rhlbfab-Pllikgo Work Phone: 07-08-2021 07:49-0500 Body mass index (BMI) [Ratio] 26.47 kg/m2 Mike Tinsley Work Phone: WG-Izdptpm-Ogipkoe Work Phone: 07-08-2021 07:49-0500 Body surface area Derived from formula 2.02 m2 Mike Tinsley Work Phone: HB-Jwjgnsp-Cvmhzjh Work Phone: 07-08-2021 07:49-0500 Body weight 83.69 kg Mike Tinsley Work Phone: MU-Ejzruvt-Erdcgkj Work Phone: 07-08-2021 07:49-0500 Diastolic blood pressure 71 mm[Hg] Mike Tinsley Work Phone: DX-Gbwbxod-Krjrapi Work Phone: 07-08-2021 07:49-0500 Heart rate 70 /min Mike Tinsley Work Phone: CK-Rpyrlst-Ouckstk Work Phone: 07-08-2021 07:49-0500 Systolic blood pressure 128 mm[Hg] Mike Tinsley Work Phone: KX-Lisfhim-Yrawnbx Work Phone: 03-11-2020 11:40-0500 BMI (Body Mass Index) 26.83 kg/m2 [facility] 03-11-2020 11:40-0500 Body Temperature 97.2 [degF] [facility] 03-11-2020 11:40-0500 Body weight 87.27 kg [facility] 03-11-2020 11:40-0500 BP Diastolic 106 mm[Hg] [facility] 03-11-2020 11:40-0500 BP Systolic 155 mm[Hg] [facility] 03-11-2020 11:40-0500 Pulse (Heart Rate) 69 /min [facility] 02-29-2020 11:21-0400 BP Diastolic 83 mm[Hg] [facility] 02-29-2020 11:21-0400 BP Systolic 148 mm[Hg] [facility] 02-29-2020 11:21-0400 Pulse (Heart Rate) 72 /min [facility] [employer] [facility] 02-29-2020 11:21-0400 Pulse Oximetry 92 % [facility] 02-29-2020 11:21-0400 Respiratory Rate 16 /min [facility] 02-29-2020 09:30-0400 BMI (Body Mass Index) 26.92 kg/m2 [facility] 02-29-2020 09:30-0400 Body Temperature 98.6 [degF] [facility] 02-29-2020 09:30-0400 Body weight 87.54 kg [facility] 02-29-2020 09:30-0400 Height 180.3 cm [facility] Encounters Encounter Date Encounter Type Care Provider Facility Start: 03-01-2023 End: 03-01-2023 ambulatory MALIK DELONG [facility] Start: 03-01-2023 End: 03-01-2023 Subsequent hospital visit by physician Malik Delong MD Work Phone: [facility] [place] Procedures Date Procedure Procedure Detail Performing Clinician Start: 03-01-2023 DISCHARGE PATIENT MALIK DELONG Start: 03-01-2023 PLACE IN OUTPATIENT/HOSPITAL AMBULATORY SURGERY MALIK DELONG Start: 12-28-2022 SURGICAL PATHOLOGY RESULTS Malik Delong MD Work Phone: Start: 01-27-2022 Follow-up visit Follow-up NATASHA HUERTA Start: 10-22-2021 SURG PATH REQUEST (SCANNED) Natasha Huerta MD Work Phone: Start: 02-29-2020 Iadna nos amplified probe tq each organism Natasha Huerta Work Phone: Colonoscopy Mike Tinsley Work Phone: Endoscopy Mike Tinsley Work Phone: Plan of Treatment Date Care Activity Detail Author Start: 11-03-2030 DTaP/Tdap/Td Vaccines (2 - Td or Tdap) DTaP/Tdap/Td Vaccines (2 - Td or Tdap) [facility] Start: 11-03-2030 Tetanus vaccination [facility] Start: 05-05-2024 Prostate specific antigen measurement PSA Level [facility] Start: 03-01-2023 End: 03-01-2023 Plmt interstitial dev radiat tx prostate 1/mult Insertion Fiducial Marker Prostate Prostate cancer ([facility]/HCC) 03/01/2023 7:29 AM EDT [facility] Start: 03-01-2023 End: 03-01-2023 Us transrectal Ultrasonography Transrectal Prostate Prostate cancer (CMS/HCC) 03/01/2023 7:29 AM EDT [facility] Start: 01-17-2023 FUV, Provider: Malik Delong II, Status: Pen, Time: 7:45 AM FUV, Provider: Malik Delong II, Status: Pen, Time: 7:45 AM FZ-Vfgwdsr-Xlucbulu HC 232 DO Work Phone: Start: 12-31-2022 Influenza vaccination Influenza Vaccine (#1) [facility] Start: 12-20-2022 End: 12-20-[address] [facility] Start: 12-01-2022 CYSTOSCOPY, Provider: YAZIDISM UROLOGY PROCEDURE RM,[id number], Status: Pen, Time: 8:30 AM CYSTOSCOPY, Provider: YAZIDISM UROLOGY PROCEDURE RM,[id number], Status: Pen, Time: 8:30 AM YQ-Mqbvgnc-Rczbmbxp HC 232 DO Work Phone: Start: 11-10-2022 FUV, Provider: Malik Delong II, Status: Pen, Time: 7:30 AM FUV, Provider: Malik Delong II, Status: Pen, Time: 7:30 AM DM-Lmyedsm-Dpberas Work Phone: Start: 05-31-2022 End: 05-31-2022 Patient encounter procedure 05/31/2022 Office Visit Cardiology Susan Chavez, IT INTERN [address] [place] [address] Farideh Barnes MD [address] [place] [id number] [facility] Start: 05-12-2022 CYSTOSCOPY, Provider: YAZIDISM UROLOGY PROCEDURE RM,[id number], Status: Pen, Time: 7:30 AM CYSTOSCOPY, Provider: YAZIDISM UROLOGY PROCEDURE RM,[id number], Status: Pen, Time: 7:30 AM AD-Gjdsobp-Csylkqne HC 232 DO Work Phone: Start: 05-05-2022 End: 05-05-2022 Patient encounter procedure 05/05/2022 Office Visit Plastic Surgery Natasha Huerta MD [address] [place] [address] [facility] Start: 04-24-2022 COVID-19 Vaccine (4 - Pfizer series) COVID-19 Vaccine (4 - Pfizer series) [facility] Start: 04-16-2022 End: 04-16-2022 Admission to same day surgery center 04/16/2022 Surgery Multispecialty Natasha Huerta MD [address] [id number] EXCISION LESION NOSE W/ FROZEN SECTION [facility] Periop Immunizations Immunization Date Immunization Notes Care Provider Fa cili 10-21-2022 Pneumococcal conjuga te vaccine, 20-valent (PREVNAR 20) Malik Delong MD Work Phone: [facility] Work Phone: 02-27-2022 Pfizer COVID-19 vaccine, bivalent, age 12 years and older (30 mcg/0.3 mL) Malik Delong MD Work Phone: [facility] Work Phone: 02-25-2022 Flu vaccine, quadrivalent, high-dose, preservative free, age 65y+ (FLUZONE) Malik Delong MD Work Phone: [facility] Work Phone: 02-25-2022 influenza virus vaccine, unspecified formulation Malik Delong MD Work Phone: [facility] Work Phone: 08-28-2021 Pfizer Lozano Cap SARS-CoV-2 Malik Delong MD Work Phone: [facility] Work Phone: 03-30-2021 influenza, injectabl e, quadrivalent, preservative free Malik Delong MD Work Phone: [facility] Work Phone: 03-30-2021 influenza virus vaccine, unspecified formulation Natasha Huerta MD Work Phone: [facility] 11-03-2020 tetanus toxoid, redu janine diphtheria toxoid, and acellular pertussis vaccine, adsorbed Malik Delong MD Work Phone: [facility] Work Phone: 02-12-2020 Influenza, injectabl e, Madin Graford Canine Kidney, preservative free, quadrivalent Malik Delong MD Work Phone: [facility] Work Phone: 02-12-2019 Seasonal trivalent influenza vaccine, adjuvanted, preservative free Malik Delong MD Work Phone: [facility] Work Phone: 02-08-2018 influenza, injectabl e, quadrivalent, preservative free Malik Delong MD Work Phone: [facility] Work Phone: 02-18-2017 influenza, injectabl e, quadrivalent, preservative free Malik Delong MD Work Phone: [facility] Work Phone: 04-15-2009 novel [id number], preservative-free, injectable Malik Delong MD Work Phone: [facility] Work Phone: Payers Date Payer Category Payer Medicare [id number] 2019 Unknown [id number] 1. [id number] 2019 Unknown [id number] 2018 Medicare [id number] 1.2 .[id number] 2018 Medicare [id number]. [id number] 2018 Medicare [id number] 2017 Unknown 1953 Unknown [id number] 2.16.84 0.1.274825.3.579.2. 1953 Unknown [id number] 2.16.84 0.1.420118.3.579.2.7 1953 Unknown [id number] 2.16.84 0.1.473014.3.579.2. 1953 Unknown [id number] 2.16.84 0.1.433442.3.579.2.717 1953 Unknown [id number] 2.16.84 0.1.247467.3.579.2.71 1953 Unknown [id number] 2.16.84 0.1.538923.3.579.2.717 1953 Unknown [id number] 2.16.8 40.1.840742.3.579.2.98 1953 Unknown [id number] 2.16.8 40.1.306097.3.579.2.98 1953 Unknown [id number] 2.16.8 40.1.196854.3.579.2. 1953 Unknown [id number] 2.16.8 40.1.358653.3.579.2. 1953 Unknown [id number] 2.16.8 40.1.534947.3.579.2. 1953 Unknown [id number] 2.16.8 40.1.615412.3.579.2. 1953 Unknown [id number] 2.16.8 40.1.668470.3.579.2.3 1953 Unknown [id number] 2.16.8 40.1.727299.3.579.2. 1953 Unknown [id number] 2.16.8 40.1.514842.3.579.2.983 1953 Unknown [id number] 2.16.8 40.1.851087.3.579.2.98 1953 Unknown [id number] 2.16.8 40.1.419740.3.579.2.983 1953 Unknown [id number] 2.16.8 40.1.636411.3.579.2.983 1953 Unknown [id number] 2.16. 840.1.787361.3.579.2.903 1953 Unknown [id number] 2.16. 840.1.483424.3.579.2.3 1953 Unknown [id number] 2.16. 840.1.071914.3.579.2.903 1953 Unknown [id number] 2.16. 840.1.710789.3.579.2. 1953 Unknown [id number] 2.16. 840.1.050766.3.579.2.3 1953 Unknown [id number] 2.16. 840.1.159029.3.579.2. 1953 Unknown [id number] 2.16. 840.1.082240.3.579.2.3 1953 Unknown [id number] 2.16. 840.1.326794.3.579.2. 1953 Unknown [id number] 2.16. 840.1.807056.3.579.2.3 1953 Unknown [id number] 2.16. 840.1.739841.3.579.2. 1953 Unknown [id number] 2.16. 840.1.438742.3.579.2.3 1953 Unknown [id number] 2.16.8 40.1.303512.3.579.2.1069 1953 Unknown [id number] 2.16. 840.1.033777.3.579.2.903 1953 Unknown [id number] 2.16. 840.1.254560.3.579.2.903 1953 Unknown [id number] 2.16. 840.1.115618.3.579.2.356 1953 Unknown [id number] 2.16. 840.1.664357.3.579.2.356 1953 Unknown [id number] 2.16. 840.1.881513.3.579.2.356 1953 Unknown [id number] 2.16. 840.1.877313.3.579.2.356 1953 Unknown [id number] 2.16. 840.1.370655.3.579.2.356 1953 Unknown [id number] 2.16.84 0.1.000998.3.579.2.1243 Unknown [id number] Social History Date Type Detail Facility Start: 04-14-2017 Tobacco smoking status OHIS Unknown if ever smoked [facility] Start: 1955 Sex Assigned At Not on file [facility] Work Phone: Start: 02-29-2020 End: 02-28-2023 Tobacco smoking status NHIS Former smoker [facility] Start: 02-29-2020 End: 05-31-2022 Tobacco use and exposure Never used [facility] Start: 10-12-2021 End: 03-01-2023 Exposure to SARS-CoV-2 (event) Not sure [facility] Start: 06-02-2022 End: 03-01-2023 Alcohol consumption one to two days per week Alcohol consumption one to two days per week PE-Drmgiym-Xwsgylo Work Phone: End: 08-15-2020 History of tobacco use Current smoker [facility] [employer] [facility] Start: 10-22-2021 End: 03-01-2023 Alcohol intake Ex-drinker (finding) [facility] Start: 03-31-2022 Tobacco smoking status NHIS Smokes tobacco daily [facility] End: 08-15-2020 History of tobacco use Cigarette Smoker [facility] [employer] [facility] Start: 06-02-2022 Alcohol intake Lifetime non-drinker (finding) [facility] Start: 06-02-2022 End: 03-01-[address] [facility] Start: 05-31-2022 Gender identity Identifies as male gender (finding) [facility] Start: 05-31-2022 Sexual orientation Heterosexual (finding) [facility] Medical Equipment Procedure Code Equipment Code Equipment Origin al Text Equipment Identifier Dates Gold Markers, 1. 2mm, Soft Tissue, 20cm 17ga [place], 3-Pk, Strl - [id number] Start: 03-01-2023 Clinical Notes 06-23-2021 to 03-01-2023 Op Note - Malik Delong MD - 03/01/2023 7:47 AM EDTOp Note - Malik Delong MD - 03/01/2023 7:47 AM EDTPreprocedure Instructions - Sun Solo RN - 02/28/2023 10:57 AM EDTDischarge Instructions Note Date & Type Note Facility 03-01-2023 Note Formatting of this n ote is different from the original. SpaceOAR with Fudicial Markers, Insertion Fiducial Marker Prostate Operative Note Date: 03/01/2023 OR Location: [facility] OR Name: Carlton Cordova, : 1955, Age: 67 y.o., , Sex: male Diagnosis Pre-op Diagnosis * Prostate cancer (CMS/HCC) [C61] Post-op Diagnosis * Prostate cancer (CMS/HCC) [C61] Procedures SpaceOAR with Fudicial Markers 09288 - CHG US TRANSRECTAL Insertion Fiducial Marker Prostate 73963 - DE PLMT INTERSTITIAL DEV RADIAT TX PROSTATE 1/MULT Surgeons * Malik Delong - Primary Resident/Fellow/Other Merchandise Clerk: Surgeon(s) and Role: Procedure Summary Anesthesia: General ASA: III Anesthesia Staff: Anesthesiologist: Michael Stevens MD Estimated Blood Loss: 0mL Intra-op Medications: * No intraprocedure medications in log * Anesthesia Record Intraprocedure I/O Totals Intake Ketamine 0.00 mL The total shown is the total volume documented since Anesthesia Start was filed. Propofol Drip 0.00 mL The total shown is the total volume documented since Anesthesia Start was filed. Total Intake 0 mL Specimen: No specimens collected Staff: Sociology Research Assistant: Rayna Mercer RN Scrub Person: Chaparro Mcgovern Drains and/or Catheters: * None in log * Tourniquet Times: Implants: Implants Type Name Action Serial No. Implant GOLD MARKERS, 1.2MM, SOFT TISSUE, 20CM 17GA NEEDLES, 3-PK, STRL - [id number] Implanted [id number] Indications: Carlton Cordova is an 67 y.o. male who is having surgery for Prostate cancer ([facility]) [C61]. The patient was seen in the preoperative area. The risks, benefits, complications, treatment options, non-operative alternatives, expected recovery and outcomes were discussed with the patient. The possibilities of reaction to medication, pulmonary aspiration, injury to surrounding structures, bleeding, recurrent infection, the need for additional procedures, failure to diagnose a condition, and creating a complication requiring transfusion or operation were discussed with the patient. The patient concurred with the proposed plan, giving informed consent. The site of surgery was properly noted/marked if necessary per policy. The patient has been actively warmed in preoperative area. Anesthetic: General Estimated blood loss: Minimal. Complications: None. Pre-Op Diagnosis: Prostate cancer. Post-Op Diagnosis: Prostate cancer. Operation: ULTRASOUND GUIDED TRANSPERNINEAL PLACEMENT OF SPACEOAR AND FIDUCIAL MARKERS Physician: Sindi Anesthesia: General INDICATIONS AND CONSENT: patient has a history of prostate cancer who now presents for treatment. After the risks, benefits, alternatives and indications for the procedure were explained, he consented. PROCEDURE: The subject was positioned in the dorsal lithotomy position. A bilateral pudendal nerve block was performed using standard technique (1% lidocaine solution) The needle was advanced to the mid perineum region and an adequate dose of Lidocaine was injected. Once this area became anesthetized (~5 min), the needle was advanced until it was proximal to the pudendal nerve, and an additional dose of Lidocaine was injected. Once the area was completely anesthetized (~5 min), placement of SpaceOAR commence. Intra-Service Prior to needle insertion, an axial measurement of the space between the prostate (mid gland) and rectum was noted. SpaceOAR hydrogel was prepared as described in the net developer with wcf s Instructions For Use while the patient was prepped. With the subject maintained in the dorsal lithotomy position, the transrectal ultrasound (TRUS) probe was positioned to enable visual guidance of the needle into the space between the prostate and the rectum. Under transrectal ultrasound guidance, the 15 cm 18G needle was inserted through the rectourethralis muscle and the needle tip advanced into the perirectal fat inferior to the prostate all by using a transperineal approach and with side-fire transrectal ultrasound guidance. The needle position was confirmed in both sagittal and axial proctor. Saline was used to dissect the space between the Denonvilliers fascia and anterior rectal wall ( hydrodissection ). A space was created with hydrodissection. With the needle tip at mid gland, the axial field was viewed to confirm the needle was not in the rectal wall (movement of the needle tip without corresponding movement of the rectal wall will confirm perirectal placement). While maintaining the desired position, aspiration was done to ensure that the needle was not in vascular space. The assembled SpaceOAR delivery system was then attached to the 18G needle. Under ultrasound guidance (sagittal plane), a smooth, continuous injection technique was used to dispense the SpaceOAR hydrogel into the space between the prostate and rectum (Denonvilliers fascia and the anterior rectal wall). The entire syringe contents (10 mL total) were injected without stopping. Optimal visualization of the needle during hydrogel administration was maintained at all times. An axial measurement of the space between the prostate (mid gland) and rectum immediately post-SpaceOAR injection was noted. No suspected penetration or compromise of the rectal wall occurred. Post-Service He will continue ciprofloxacin 500 mg twice daily until gone and follow-up next week for his pre IMRT imaging for planning with Radiation Oncologist The patient tolerated the procedure well. There were no complications. Attending Attestation: I was present and scrubbed for the entire procedure. Malik Delong [facility] Work Phone: 03-01-2023 Miscellaneous Notes SpaceOAR with Fudicial Markers, Insertion Fiducial Marker Prostate Operative Note Date: 03/01/2023 OR Location: [facility] Name: Carlton Cordova, : 1955, Age: 67 y.o., , Sex: male Diagnosis Pre-op Diagnosis * Prostate cancer (CMS/HCC) [C61] Post-op Diagnosis * Prostate cancer (CMS/HCC) [C61] Procedures SpaceOAR with Fudicial Markers 12887 - CHG US TRANSRECTAL Insertion Fiducial Marker Prostate 18239 - DE PLMT INTERSTITIAL DEV RADIAT TX PROSTATE 1/MULT Surgeons * Malik Delong - Primary Resident/Fellow/Other Merchandise Clerk: Surgeon(s) and Role: Procedure Summary Anesthesia: General ASA: III Anesthesia Staff: Anesthesiologist: Michael Stevens MD Estimated Blood Loss: 0mL Intra-op Medications: * No intraprocedure medications in log * Anesthesia Record Intraprocedure I/O Totals Intake Ketamine 0.00 mL The total shown is the total volume documented since Anesthesia Start was filed. Propofol Drip 0.00 mL The total shown is the total volume documented since Anesthesia Start was filed. Total Intake 0 mL Specimen: No specimens collected Staff: Sociology Research Assistant: Rayna Mercer RN Scrub Person: Chaparro Mcgovern Drains and/or Catheters: * None in log * Tourniquet Times: Implants: Implants Type Name Action Serial No. Implant GOLD MARKERS, 1.2MM, SOFT TISSUE, 20CM 17GA NEEDLES, 3-PK, STRL - [id number] Implanted [id number] Indications: Carlton Cordova is an 67 y.o. male who is having surgery for Prostate cancer ([facility]) [C61]. The patient was seen in the preoperative area. The risks, benefits, complications, treatment options, non-operative alternatives, expected recovery and outcomes were discussed with the patient. The possibilities of reaction to medication, pulmonary aspiration, injury to surrounding structures, bleeding, recurrent infection, the need for additional procedures, failure to diagnose a condition, and creating a complication requiring transfusion or operation were discussed with the patient. The patient concurred with the proposed plan, giving informed consent. The site of surgery was properly noted/marked if necessary per policy. The patient has been actively warmed in preoperative area. Anesthetic: General Estimated blood loss: Minimal. Complications: None. Pre-Op Diagnosis: Prostate cancer. Post-Op Diagnosis: Prostate cancer. Operation: ULTRASOUND GUIDED TRANSPERNINEAL PLACEMENT OF SPACEOAR AND FIDUCIAL MARKERS Physician: Sindi Anesthesia: General INDICATIONS AND CONSENT: patient has a history of prostate cancer who now presents for treatment. After the risks, benefits, alternatives and indications for the procedure were explained, he consented. PROCEDURE: The subject was positioned in the dorsal lithotomy position. A bilateral pudendal nerve block was performed using standard technique (1% lidocaine solution) The needle was advanced to the mid perineum region and an adequate dose of Lidocaine was injected. Once this area became anesthetized (~5 min), the needle was advanced until it was proximal to the pudendal nerve, and an additional dose of Lidocaine was injected. Once the area was completely anesthetized (~5 min), placement of SpaceOAR commence. Intra-Service Prior to needle insertion, an axial measurement of the space between the prostate (mid gland) and rectum was noted. SpaceOAR hydrogel was prepared as described in the net developer with wcf s Instructions For Use while the patient was prepped. With the subject maintained in the dorsal lithotomy position, the transrectal ultrasound (TRUS) probe was positioned to enable visual guidance of the needle into the space between the prostate and the rectum. Under transrectal ultrasound guidance, the 15 cm 18G needle was inserted through the rectourethralis muscle and the needle tip advanced into the perirectal fat inferior to the prostate all by using a transperineal approach and with side-fire transrectal ultrasound guidance. The needle position was confirmed in both sagittal and axial proctor. Saline was used to dissect the space between the Denonvilliers fascia and anterior rectal wall ( hydrodissection ). A space was created with hydrodissection. With the needle tip at mid gland, the axial field was viewed to confirm the needle was not in the rectal wall (movement of the needle tip without corresponding movement of the rectal wall will confirm perirectal placement). While maintaining the desired position, aspiration was done to ensure that the needle was not in vascular space. The assembled SpaceOAR delivery system was then attached to the 18G needle. Under ultrasound guidance (sagittal plane), a smooth, continuous injection technique was used to dispense the SpaceOAR hydrogel into the space between the prostate and rectum (Denonvilliers fascia and the anterior rectal wall). The entire syringe contents (10 mL total) were injected without stopping. Optimal visualization of the needle during hydrogel administration was maintained at all times. An axial measurement of the space between the prostate (mid gland) and rectum immediately post-SpaceOAR injection was noted. No suspected penetration or compromise of the rectal wall occurred. Post-Service He will continue ciprofloxacin 500 mg twice daily until gone and follow-up next week for his pre IMRT imaging for planning with Radiation Oncologist The patient tolerated the procedure well. There were no complications. Attending Attestation: I was present and scrubbed for the entire procedure. Malik Delong No outpatient medications have been marked as taking for the 03/01/23 encounter (Hospital Encounter). 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 Report to 2nd floor at hospital at 0600 tuesday documented in this encounter [facility] Work Phone: 03-01-2023 History and physical note History Of Present Illness Carlton Cordova is a 67 y.o. male presenting with prostate cancer. Past Medical History Past Medical History: Diagnosis Date BPH (benign prostatic hyperplasia) Chronic back pain COPD (chronic obstructive pulmonary disease) (CMS/HCC) Personal history of malignant neoplasm of bladder History of malignant neoplasm of bladder Surgical History Past Surgical History: Procedure Laterality Date OTHER SURGICAL HISTORY 05/28/2019 Colonoscopy OTHER SURGICAL HISTORY 05/28/2019 Endoscopy PROSTATE BIOPSY Social History He reports that he has quit smoking. His smoking use included cigarettes. He does not have any smokeless tobacco history on file. He reports that he does not currently use alcohol. Drug use questions deferred to the physician. Family History Family History Problem Relation Name Age of Onset Skin cancer Sister Allergies Ciprofloxacin and Levofloxacin Review of Systems Constitutional: Negative for chills and fever. HENT: Negative. Eyes: Negative. Respiratory: Negative for cough and shortness of breath. Cardiovascular: Negative for chest pain and leg swelling. Gastrointestinal: Negative for nausea. Endocrine: Negative. Genitourinary: Negative for difficulty urinating. Negative except for documented in HPI Allergic/Immunologic: Negative. Neurological: Alert & oriented X 3 Hematological: Denies blood thinners Psychiatric/Behavioral: Negative. Physical Exam Vitals and nursing note reviewed. Pulmonary: Effort: Pulmonary effort is normal. Breath sounds: Normal breath sounds. Abdominal: Palpations: Abdomen is soft. Tenderness: There is no abdominal tenderness. Genitourinary: Comments: Kidneys non palpable bilaterally Bladder non palpable or tender Neurological: Mental Status: He is alert. Last Recorded Vitals Blood pressure 154/75, pulse 71, temperature 36.6 C (97.9 F), temperature source Temporal, resp. rate 13, height 1.803 m (5' 11 ), weight 88.2 kg (194 lb 7.1 oz), SpO2 94 %. Assessment/Plan Principal Problem: Prostate cancer (CMS/HCC) . Malik Delong MD [facility] Work Phone: 03-01-2023 History and physical note History Of Present Illness Carlton Cordova is a 67 y.o. male presenting with prostate cancer. Past Medical History Past Medical History: Diagnosis Date BPH (benign prostatic hyperplasia) Chronic back pain COPD (chronic obstructive pulmonary disease) (CMS/HCC) Personal history of malignant neoplasm of bladder History of malignant neoplasm of bladder Surgical History Past Surgical History: Procedure Laterality Date OTHER SURGICAL HISTORY 05/28/2019 Colonoscopy OTHER SURGICAL HISTORY 05/28/2019 Endoscopy PROSTATE BIOPSY Social History He reports that he has quit smoking. His smoking use included cigarettes. He does not have any smokeless tobacco history on file. He reports that he does not currently use alcohol. Drug use questions deferred to the physician. Family History Family History Problem Relation Name Age of Onset Skin cancer Sister Allergies Ciprofloxacin and Levofloxacin Review of Systems Constitutional: Negative for chills and fever. HENT: Negative. Eyes: Negative. Respiratory: Negative for cough and shortness of breath. Cardiovascular: Negative for chest pain and leg swelling. Gastrointestinal: Negative for nausea. Endocrine: Negative. Genitourinary: Negative for difficulty urinating. Negative except for documented in HPI Allergic/Immunologic: Negative. Neurological: Alert & oriented X 3 Hematological: Denies blood thinners Psychiatric/Behavioral: Negative. Physical Exam Vitals and nursing note reviewed. Pulmonary: Effort: Pulmonary effort is normal. Breath sounds: Normal breath sounds. Abdominal: Palpations: Abdomen is soft. Tenderness: There is no abdominal tenderness. Genitourinary: Comments: Kidneys non palpable bilaterally Bladder non palpable or tender Neurological: Mental Status: He is alert. Last Recorded Vitals Blood pressure 154/75, pulse 71, temperature 36.6 C (97.9 F), temperature source Temporal, resp. rate 13, height 1.803 m (5' 11 ), weight 88.2 kg (194 lb 7.1 oz), SpO2 94 %. Assessment/Plan Principal Problem: Prostate cancer (CMS/HCC) . Malik Delong MD documented in this encounter [facility] Work Phone: 02-28-2023 Note Formatting of this n ote is different from the original. No outpatient medications have been marked as taking for the 03/01/23 encounter (Hospital Encounter). 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 Report to 2nd floor at [facility] at 0600 tuesday [facility] Work Phone: 12-28-2022 Miscellaneous Notes PROCEDURE DETAILS Preoperative Diagnosis: Elevated PSA Postoperative Diagnosis: Elevated PSA Surgeon: Malik Delong Resident/Fellow/Other Merchandise Clerk: None of these were associated with this case Procedure: 1. PROSTATE NEEDLE BX Anesthesia: No anesthesiologist associated with this case Estimated Blood Loss: 0 Findings: see op note Specimens(s) Collected: yes, Operative Report: Pre Op dx: Elevated PSA and Abnormal MRI of the prostate Post Op Dx: SAME Procedure: MRI Guided Fusion Bx of the prostate Physician: SINDI Anesthesia: MAC Estimated Blood Loss: Minimal Complications: NONE Indications and Consent: Patient present for prostate Biopsy of lesion found on MRI. After the risks,, benefits, and indications were explained he consented to the procedure. PROCEDURE: After adequate sedation was obtained the ultrasound probe was inserted into the rectum. An ultrasound sweep of the prostate was performed. These images were then fused with the previously obtained MRI images. The lesion(s) were identified. Multiple targeted biopsies were obtained . I also performed standard Sextant biopsies of the right and left lobe of the prostate. The patient tolerated the procedure well. follow up 2 weeks for results Attestation: Note Completion: Attending Attestation I performed the procedure without a resident Electronic Signatures: Malik Delong) (Signed 28-Dec-2022 09:28) Authored: Post-Operative Note, Chart Review, Note Completion Last Updated: 28-Dec-2022 09:28 by Malik Delong) documented in this encounter [facility] Work Phone: 12-28-2022 Note Formatting of this n ote is different from the original. PROCEDURE DETAILS Preoperative Diagnosis: Elevated PSA Postoperative Diagnosis: Elevated PSA Surgeon: Malik Delong Resident/Fellow/Other Merchandise Clerk: None of these were associated with this case Procedure: 1. PROSTATE NEEDLE BX Anesthesia: No anesthesiologist associated with this case Estimated Blood Loss: 0 Findings: see op note Specimens(s) Collected: yes, Operative Report: Pre Op dx: Elevated PSA and Abnormal MRI of the prostate Post Op Dx: SAME Procedure: MRI Guided Fusion Bx of the prostate Physician: SINDI Anesthesia: MAC Estimated Blood Loss: Minimal Complications: NONE Indications and Consent: Patient present for prostate Biopsy of lesion found on MRI. After the risks,, benefits, and indications were explained he consented to the procedure. PROCEDURE: After adequate sedation was obtained the ultrasound probe was inserted into the rectum. An ultrasound sweep of the prostate was performed. These images were then fused with the previously obtained MRI images. The lesion(s) were identified. Multiple targeted biopsies were obtained . I also performed standard Sextant biopsies of the right and left lobe of the prostate. The patient tolerated the procedure well. follow up 2 weeks for results Attestation: Note Completion: Attending Attestation I performed the procedure without a resident Electronic Signatures: Malik Delong) (Signed 28-Dec-2022 09:28) Authored: Post-Operative Note, Chart Review, Note Completion Last Updated: 28-Dec-2022 09:28 by Malik Delong) [facility] Work Phone: 12-28-2022 History and physical note History & Physical Reviewed: I have reviewed the History and Physical dated: 01-Dec-2022 History and Physical reviewed and relevant findings noted. Patient examined to review pertinent physical findings.: No significant changes Home Medications Reviewed: no changes noted Allergies Reviewed: no changes noted ERAS (Enhanced Recovery After Surgery): ERAS Patient: no Consent: COVID-19 Consent: COVID-19 Risk Consent Surgeon has reviewed lee risks related to the risk of génesis COVID-19 and if they contract COVID-19 what the risks are. Electronic Signatures: Malik Delong) (Signed 28-Dec-2022 07:44) Authored: History & Physical Reviewed, ERAS, Consent, Note Completion Last Updated: 28-Dec-2022 07:44 by Malik Delong) [facility] Work Phone: 12-28-2022 History and physical note History & Physical Reviewed: I have reviewed the History and Physical dated: 01-Dec-2022 History and Physical reviewed and relevant findings noted. Patient examined to review pertinent physical findings.: No significant changes Home Medications Reviewed: no changes noted Allergies Reviewed: no changes noted ERAS (Enhanced Recovery After Surgery): ERAS Patient: no Consent: COVID-19 Consent: COVID-19 Risk Consent Surgeon has reviewed lee risks related to the risk of génesis COVID-19 and if they contract COVID-19 what the risks are. Electronic Signatures: Malik Delong) (Signed 28-Dec-2022 07:44) Authored: History & Physical Reviewed, ERAS, Consent, Note Completion Last Updated: 28-Dec-2022 07:44 by Malik Delong) documented in this encounter [facility] Work Phone: 10-22-2022 History of Presen t illness Narrative History of Present Illness Patient is here for Prostate MRI results. Patient has hx of elevated PSA. Most recent PSA was 13.50 on 10/22. Prior PSA was 12 (11/20) Previous PSA was 8.41 on 06/23. Prior PSA was 5.61 on 06/22. Prior PSA was 4.15 on 06/21. Patient had an MRI on 08/21 that showed stable PI-RAD 4 lesion. Patient has has 1 negative MRI bx on 08/20. Also a negative Trus bx in 2018. Patient has hx of bladder cancer. Normal cysto on 05/24. . Chronic BPH sx are mild and stable. Denies urgency and frequency. Denies dysuria. Denies hematuria. Nocturia x1. No medication for CRUZ'TS. ED is chronic. No medication for this. [id number] Work Phone: 10-22-2022 History of Presen t illness Narrative Patient is here for prostate MRI bx results. Path report showed prostate cancer in lesion of interest. [place] 7, involving 3 of multiple cores and approximately 20% of tissue. Most recent PSA was 13.50 on 10/22. Prior PSA was 12 (11/20) Previous PSA was 8.41 on 06/23. Prior PSA was 5.61 on 06/22. Prior PSA was 4.15 on 06/21. Patient had an MRI on 08/21 that showed stable PI-RAD 4 lesion. Patient has has 1 negative MRI bx on 08/20. Also a negative Trus bx in 2017. Patient has hx of bladder cancer. Normal cysto on 05/24. . Chronic BPH sx are mild and stable. Denies urgency and frequency. Denies dysuria. Denies hematuria. Nocturia x1. No medication for CRUZ'TS. ED is chronic. No medication for this. [id number] DO Work Phone: 08-30-2022 History of Presen t illness Narrative Patient called with his B/P readings, 150/Hr 66, 158/97 HR 82, 160/95 Hr 76, 154/114 Hr 63, 145/84 HR 64, 131/88 HR 71, 134/90 Hr 74, 162/94, 151/100 HR 60,, 142/93 HR 54, 153/[address] Barnes updated and new order received. Patient updated. documented in this encounter [facility] 07-02-2022 Note HNO ID: [id number] Author: Latesha Schaefer II, MARIALUISA Service: ? Author Type: BARREL SCRAPER Type: Progress Notes Filed: 07/02/2022 5:22 PM Note Text: Assessment and Plan H25.813 Combined form of senile cataract of both eyes (primary encounter diagnosis) Comment: Slow progression noted both eyes. Patient will tolerate. Recheck in one year or sooner if needed. H35.361 Degenerative retinal drusen of right eye Comment: Mild. Monitor yearly. H52.03 Hyperopia of both eyes H52.223 Regular astigmatism of both eyes H52.4 Presbyopia Comment: Small shift in glasses power. Update glasses to maximize visual performance. I have confirmed and edited as necessary the relevant ophthalmic history, ROS, and the neuro exam findings as obtained by others. I have seen and examined Carlton Cordova. I have discussed the case and the management of this patient's care with the Resident/Fellow, if applicable. I also have reviewed and agree with the assessment and plan as stated above and agree with all of its relevant components. Latesha Schaefer II, OD [facility] 05-27-2022 History of Presen t illness Narrative Attempted to call patient x1 to pre-chart before his upcoming new patient appointment with documented in this encounter [facility] 03-31-2022 History of Presen t illness Narrative General Plastics Review of Systems: Do you have any of the following: Chills, Fatigue, Fever or Night Sweats: no. Ear pain or eye discharge: no. Hearing loss or visual changes: no. Sore throat or chronic cough: no. Shortness of breath: no. Chest pain, swelling, or heart palpitations: no. Abdominal pain: no. Constipation or diarrhea: no. Heartburn or Nausea: no. Rash or skin problems: yes. Dizziness or numbness: no. Headaches or Migraines: no. Seizures: no. Joint pain, joint swelling or muscle weakness: no. Bruise or bleed easily: no. Any swollen lymph nodes: no. Have you used any nicotine products in the last 3 months? yes. Do you use any cannabis, THC or marijuana containing products? yes. Are you currently taking the medication Adipex? no. Subjective: Carlton Cordova is an 66 y.o. male who presents for evaluation today for an area to his nose and the posterior right upper leg. Areas were biopsied about 3 weeks ago. He denies any pain or discomfort at this time. He states both areas were skin cancers that have to be removed. We will obtain the pathology report from the dermatology office Allergies Allergen Reactions Ciprofloxacin Levofloxacin Current Outpatient Medications Medication Sig Dispense Refill cyclobenzaprine 10 MG tablet HYDROmorphone 2 MG tablet LISINOPRIL PO Take by mouth. omeprazole [address] capsule oxyCODONE HCl 10 MG tablet albuterol 108 (90 Base) MCG/ACT Aero Soln inhaler Inhale 2 puffs every 4 hours as needed for up to 7 days. 18 g 0 benzonatate (Tessalon Perles) 100 MG capsule Take 1 capsule by mouth 3 times daily as needed for Cough. (Patient not taking: Reported on 03/31/2022) 15 capsule 0 oxyCODONE 5 MG tablet Take 5 mg by mouth Every 4 hours as needed. (Patient not taking: Reported on 03/31/2022) No current facility-administered medications for this visit. 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 EXCISION LESION SKIN EAR EYELID FACE LIP NOSE Right 02/29/2020 Excision BCC Rt lower eyelid w/ Frozen Section (1cm) History reviewed. No pertinent family history. Social History Socioeconomic History Marital status: Spouse name: Not on file Number of children: Not on file Years of education: Not on file Highest education level: Not on file Occupational History Not on file Tobacco Use Smoking status: Every Day Types: Cigarettes Last attempt to quit: 08/15/2020 Years since quittin.6 Smokeless tobacco: Never Vaping Use Vaping Use: Never used Substance and Sexual Activity Alcohol use: Not Currently Drug use: Yes Types: Marijuana Sexual activity: Not on file Other Topics Concern Service Not Asked Blood Transfusions Not Asked Caffeine Concern Not Asked Occupational Exposure Not Asked Hobby Hazards Not Asked Sleep Concern Not Asked Stress Concern Not Asked Weight Concern Not Asked Special Diet Not Asked Back Care Not Asked Exercise Not Asked Bike Helmet Not Asked Seat Belt Not Asked Domestic Violence No Social History Narrative Not on file Social Determinants of Health Financial Resource Strain: Not on file Food Insecurity: Not on file Transportation Needs: Not on file Physical Activity: Not on file Stress: Not on file Social Connections: Not on file Intimate Partner Violence: Not on file Housing Stability: Not on file Review of Systems Pertinent items are noted in HPI. General Plastics Review of Systems: Do you have any of the following: Chills, Fatigue, Fever or Night Sweats: no. Ear pain or eye discharge: no. Hearing loss or visual changes: no. Sore throat or chronic cough: no. Shortness of breath: no. Chest pain, swelling, or heart palpitations: no. Abdominal pain: no. Constipation or diarrhea: no. Heartburn or Nausea: no. Rash or skin problems: yes. Dizziness or numbness: no. Headaches or Migraines: no. Seizures: no. Joint pain, joint swelling or muscle weakness: no. Bruise or bleed easily: no. Any swollen lymph nodes: no. Have you used any nicotine products in the last 3 months? yes. Do you use any cannabis, THC or marijuana containing products? yes. Are you currently taking the medication Adipex? no. Objective: Temp 97.9 F (36.6 C) (Temporal) Ht 1.803 m (5' 11 ) Wt 81.2 kg (179 lb) BMI 24.97 kg/m Smoking Status Every Day General: alert, cooperative, no distress, appears stated age Skin: Evidence of recent biopsy of nose and posterior right upper leg. Eyes: conjunctivae/corneas clear. PERRL, EOM's intact. Mouth: no lesions Lymph Nodes: Cervical, supraclavicular, and axillary nodes normal. Lungs: rhonchi bilaterally Heart: regular rate and rhythm, S1, S2 normal, no murmur Abdomen: soft, non-tender. No masses, no organomegaly Extremities: extremities normal, atraumatic, no edema Neurologic: negative Psychiatric: non focal. Judgement and Affect WNL. Assessment: Skin cancer nose and posterior right leg Plan: The procedure for excision / biopsy was reviewed with the patient. They are aware that this will be done in a procedure room at the hospital. Alternatives and risks were also reviewed. (these include but are not exclusive of scar tissue, tenderness, and potential need for further surgery.) The specimen will be evaluated by pathology. The patient is aware of the potential need for further surgery depending on the results. We will SCHEDULE THE PROCEDURE in the near future. SURGERY TO BE SCHEDULED FOLLOWS: ANESTHESIA: local PROCEDURE: 1. Excision skin cancer nose with FS 2 . Excision skin cancer right posterior leg with FS documented in this encounter [facility] 02-20-2022 History of Presen t illness Narrative Patient has hx of elevated PSA. Most recent PSA was 12.30 on 02/20. Prior PSA was 12 (11/20) Previous PSA was 8.41 on 06/23. Prior PSA was 5.61 on 06/22. Prior PSA was 4.15 on 06/21. Patient had an MRI on 08/21 that showed stable PI-RAD 4 lesion. Patient has has 1 negative MRI bx on 08/20. Also a negative Trus bx in 2018. Patient has hx of bladder cancer. Normal cysto on 07/21. Chronic BPH sx are mild and stable. Denies urgency and frequency. Denies dysuria. Denies hematuria. Nocturia x1. No medication for CRUZ'TS. ED is chronic. No medication for this. [id number] DO Work Phone: 01-27-2022 History of Presen t illness Narrative General Plastics Review of Systems: Do you have any of the following: Chills, Fatigue, Fever or Night Sweats: no. Ear pain or eye discharge: no. Hearing loss or visual changes: no. Sore throat or chronic cough: no. Shortness of breath: no. Chest pain, swelling, or heart palpitations: no. Abdominal pain: no. Constipation or diarrhea: no. Heartburn or Nausea: no. Rash or skin problems: no. Dizziness or numbness: no. Headaches or Migraines: no. Seizures: no. Joint pain, joint swelling or muscle weakness: no. Bruise or bleed easily: no. Any swollen lymph nodes: no. Have you used any nicotine products in the last 3 months? no. Do you use any cannabis, THC or marijuana containing products? no. Are you currently taking the medication Adipex? no. Subjective: Carlton Cordova is an 66 y.o. male who presents for evaluation of Excision lesion on nose, right lateral leg and left posterior leg on 01/01/22. He denies any pain or discomfort today. Allergies Allergen Reactions Ciprofloxacin Levofloxacin Current Outpatient Medications Medication Sig Dispense Refill benzonatate (Tessalon Perles) 100 MG capsule Take 1 capsule by mouth 3 times daily as needed for Cough. 15 capsule 0 cyclobenzaprine 10 MG tablet HYDROmorphone 2 MG tablet LISINOPRIL PO Take by mouth. omeprazole [address] capsule oxyCODONE 5 MG tablet Take 5 mg by mouth Every 4 hours as needed. oxyCODONE HCl 10 MG tablet albuterol 108 (90 Base) MCG/ACT Aero Soln inhaler Inhale 2 puffs every 4 hours as needed for up to 7 days. 18 g 0 No current facility-administered medications for this visit. 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 EXCISION LESION SKIN EAR EYELID FACE LIP NOSE Right 02/29/2020 Excision BCC Rt lower eyelid w/ Frozen Section (1cm) History reviewed. No pertinent family history. Social History Socioeconomic History Marital status: Spouse name: Not on file Number of children: Not on file Years of education: Not on file Highest education level: Not on file Occupational History Not on file Tobacco Use Smoking status: Former Smoker Quit date: 08/15/2020 Years since quittin.4 Smokeless tobacco: Never Used Vaping Use Vaping Use: Never used Substance and Sexual Activity Alcohol use: Not Currently Drug use: Never Sexual activity: Not on file Other Topics Concern Service Not Asked Blood Transfusions Not Asked Caffeine Concern Not Asked Occupational Exposure Not Asked Hobby Hazards Not Asked Sleep Concern Not Asked Stress Concern Not Asked Weight Concern Not Asked Special Diet Not Asked Back Care Not Asked Exercise Not Asked Bike Helmet Not Asked Seat Belt Not Asked Domestic Violence No Social History Narrative Not on file Social Determinants of Health Financial Resource Strain: Not on file Food Insecurity: Not on file Transportation Needs: Not on file Physical Activity: Not on file Stress: Not on file Social Connections: Not on file Intimate Partner Violence: Not on file Housing Stability: Not on file Review of Systems Pertinent items are noted in HPI. General Plastics Review of Systems: Do you have any of the following: Chills, Fatigue, Fever or Night Sweats: no. Ear pain or eye discharge: no. Hearing loss or visual changes: no. Sore throat or chronic cough: no. Shortness of breath: no. Chest pain, swelling, or heart palpitations: no. Abdominal pain: no. Constipation or diarrhea: no. Heartburn or Nausea: no. Rash or skin problems: no. Dizziness or numbness: no. Headaches or Migraines: no. Seizures: no. Joint pain, joint swelling or muscle weakness: no. Bruise or bleed easily: no. Any swollen lymph nodes: no. Have you used any nicotine products in the last 3 months? no. Do you use any cannabis, THC or marijuana containing products? no. Are you currently taking the medication Adipex? no. Objective: BP 131/76 Pulse 99 Temp 98.1 F (36.7 C) (Temporal) Ht 1.803 m (5' 11 ) Wt 82.6 kg (182 lb) BMI 25.38 kg/m Smoking Status Former Smoker The incisions on his legs are well approximated. There is no evidence of infection. The sutures were removed and Aquaphor was applied to the sites. He will be following up with dermatology regarding his nose. No further intervention is needed on his legs. 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 documented in this encounter [facility] 01-13-2022 History of Presen t illness Narrative General Plastics Review of Systems: Do you have any of the following: Chills, Fatigue, Fever or Night Sweats: no. Ear pain or eye discharge: no. Hearing loss or visual changes: no. Sore throat or chronic cough: no. Shortness of breath: no. Chest pain, swelling, or heart palpitations: no. Abdominal pain: no. Constipation or diarrhea: no. Heartburn or Nausea: no. Rash or skin problems: no. Dizziness or numbness: no. Headaches or Migraines: no. Seizures: no. Joint pain, joint swelling or muscle weakness: no. Bruise or bleed easily: no. Any swollen lymph nodes: no. Have you used any nicotine products in the last 3 months? no. Do you use any cannabis, THC or marijuana containing products? no. Are you currently taking the medication Adipex? no. Subjective: Carlton Cordova is an 66 y.o. male who presents for evaluation of Excision lesion right lateral leg and left posterior calf on 01/01/22. He denies any pain or discomfort to the areas. Allergies Allergen Reactions Ciprofloxacin Levofloxacin Current Outpatient Medications Medication Sig Dispense Refill cyclobenzaprine 10 MG tablet HYDROmorphone 2 MG tablet LISINOPRIL PO Take by mouth. omeprazole [address] capsule oxyCODONE 5 MG tablet Take 5 mg by mouth Every 4 hours as needed. oxyCODONE HCl 10 MG tablet albuterol 108 (90 Base) MCG/ACT Aero Soln inhaler Inhale 2 puffs every 4 hours as needed for up to 7 days. 18 g 0 benzonatate (Tessalon Perles) 100 MG capsule Take 1 capsule by mouth 3 times daily as needed for Cough. (Patient not taking: Reported on 01/13/2022) 15 capsule 0 No current facility-administered medications for this visit. 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 EXCISION LESION SKIN EAR EYELID FACE LIP NOSE Right 02/29/2020 Excision BCC Rt lower eyelid w/ Frozen Section (1cm) History reviewed. No pertinent family history. Social History Socioeconomic History Marital status: Spouse name: Not on file Number of children: Not on file Years of education: Not on file Highest education level: Not on file Occupational History Not on file Tobacco Use Smoking status: Former Smoker Quit date: 08/15/2020 Years since quittin.4 Smokeless tobacco: Never Used Vaping Use Vaping Use: Never used Substance and Sexual Activity Alcohol use: Not Currently Drug use: Never Sexual activity: Not on file Other Topics Concern Service Not Asked Blood Transfusions Not Asked Caffeine Concern Not Asked Occupational Exposure Not Asked Hobby Hazards Not Asked Sleep Concern Not Asked Stress Concern Not Asked Weight Concern Not Asked Special Diet Not Asked Back Care Not Asked Exercise Not Asked Bike Helmet Not Asked Seat Belt Not Asked Domestic Violence No Social History Narrative Not on file Social Determinants of Health Financial Resource Strain: Not on file Food Insecurity: Not on file Transportation Needs: Not on file Physical Activity: Not on file Stress: Not on file Social Connections: Not on file Intimate Partner Violence: Not on file Housing Stability: Not on file Review of Systems Pertinent items are noted in HPI. General Plastics Review of Systems: Do you have any of the following: Chills, Fatigue, Fever or Night Sweats: no. Ear pain or eye discharge: no. Hearing loss or visual changes: no. Sore throat or chronic cough: no. Shortness of breath: no. Chest pain, swelling, or heart palpitations: no. Abdominal pain: no. Constipation or diarrhea: no. Heartburn or Nausea: no. Rash or skin problems: no. Dizziness or numbness: no. Headaches or Migraines: no. Seizures: no. Joint pain, joint swelling or muscle weakness: no. Bruise or bleed easily: no. Any swollen lymph nodes: no. Have you used any nicotine products in the last 3 months? no. Do you use any cannabis, THC or marijuana containing products? no. Are you currently taking the medication Adipex? no. Objective: BP (!) 149/96 Pulse 82 Temp 98.5 F (36.9 C) (Temporal) Ht 1.803 m (5' 11 ) Wt 82.6 kg (182 lb) BMI 25.38 kg/m Smoking Status Former Smoker Incisions of the right and left leg well approximated. There is no evidence of infection. The sutures are intact. He does have evidence of a rash likely due to the antibiotic ointment and I have asked him to discontinue this. Pathology of the left calf demonstrated keratoacanthoma changes with clear margins Pathology of the right leg demonstrated verrucous keratosis with no evidence of malignancy I also reexamined his nose and am unable to clearly delineate a suspicious area. He indicated he would be following up with dermatology . I will see him back in a few weeks for suture removal. Assessment: Keratoacanthoma left calf, benign lesion right leg Plan: Pt to RETURN in 2 weeks FOR RECHECK. They are encouraged to call in the interim with any problems or questions relating to this encounter. documented in this encounter [facility] 01-01-2022 Nurse Note Patient is alert,denies pain and is stable. Patient is discharged and ambulates to lobby with all belongings. This nurse reviewed discharge instructions with patient. Patient states understanding. No further education needed. Script for antibiotic given to patient by Dr. Huerta OR temp 67.2deg F OR humidity 46% documented in this encounter [facility] 01-01-2022 Nurse Surgical operation note Patient is alert,denies pain and is stable. Patient is discharged and ambulates to lobby with all belongings. [facility] 01-01-2022 Nurse Surgical operation note This nurse reviewed discharge instructions with patient. Patient states understanding. No further education needed. Script for antibiotic given to patient by Dr. Huerta [facility] 01-01-2022 Hospital Discharg e instructions Natasha Huerta MD - 01/01/2022 1:36 PM EDT Elevate your legs as much as you can to decrease swelling and bleeding. Take the oral antibiotic (Keflex) 2 x a day until finished. May remove the dressings to shower, but replace daily. documented in this encounter [facility] 01-01-2022 Note Formatting of this n ote is different from the original. POST OPERATIVE/PROCEDURE NOTE Carlton Cordova ([id number]) SURGEON Surgeon(s) and Role: * Natasha Huerta MD - Primary AIRPLANE AND ENGINE INSPECTOR None ANESTHESIOLOGIST No anesthesia staff entered. SURGICAL STAFF Sociology Research Assistant: Andria Rivera RN; Anne Aguilera RN Scrub Person: Carmen Kirkpatrick PROCEDURE PERFORMED Excision lesion right lateral calf (1.5cm) and left posterior calf (1.5cm) PRIMARY CLOSURE Yes ANESTHESIA (type of) Local ESTIMATED BLOOD LOSS Minimal DRAINS None BLOOD PRODUCTS None FLUIDS No intake or output data in the 24 hours ending 01/01/22 1332 PRE OPERATIVE DIAGNOSIS Neoplasm of uncertain behavior of skin [D48.5] POST OPERATIVE DIAGNOSIS Post-Op Diagnosis Codes: * Neoplasm of uncertain behavior of skin [D48.5] FINDINGS pending CONDITION OF PATIENT stable COMPLICATIONS None GRAFTS AND/OR IMPLANTS See OR Nursing Documentation SPECIMENS Microbiology specimen sent ID Type Source Tests Collected by Time Destination A : Left Posterior calf lesion Permanent TISSUE SURGICAL PATHOLOGY REQUEST Natasha Huerta MD 01/01/2022 1310 B : Right Lateral Leg Lesion Permanent TISSUE SURGICAL PATHOLOGY REQUEST Natasha Huerta MD 01/01/2022 1320 Natasha Huerta MD January 01, 2022 1:32 PM [facility] 01-01-2022 Miscellaneous Notes POST OPERATIVE/PROCEDURE NOTE Carlton Cordova ([id number]) SURGEON Surgeon(s) and Role: * Natasha Huerta MD - Primary AIRPLANE AND ENGINE INSPECTOR None ANESTHESIOLOGIST No anesthesia staff entered. SURGICAL STAFF Sociology Research Assistant: Andria Rivera RN; Anne Aguilera RN Scrub Person: Carmen Kirkpatrick PROCEDURE PERFORMED Excision lesion right lateral calf (1.5cm) and left posterior calf (1.5cm) PRIMARY CLOSURE Yes ANESTHESIA (type of) Local ESTIMATED BLOOD LOSS Minimal DRAINS None BLOOD PRODUCTS None FLUIDS No intake or output data in the 24 hours ending 01/01/22 1332 PRE OPERATIVE DIAGNOSIS Neoplasm of uncertain behavior of skin [D48.5] POST OPERATIVE DIAGNOSIS Post-Op Diagnosis Codes: * Neoplasm of uncertain behavior of skin [D48.5] FINDINGS pending CONDITION OF PATIENT stable COMPLICATIONS None GRAFTS AND/OR IMPLANTS See OR Nursing Documentation SPECIMENS Microbiology specimen sent ID Type Source Tests Collected by Time Destination A : Left Posterior calf lesion Permanent TISSUE SURGICAL PATHOLOGY REQUEST Natasha Huerta MD 01/01/2022 1310 B : Right Lateral Leg Lesion Permanent TISSUE SURGICAL PATHOLOGY REQUEST Natasha Huerta MD 01/01/2022 1320 Natasha Huerta MD January 01, 2022 1:32 PM documented in this encounter [facility] 01-01-2022 Nurse Surgical operation note OR temp 67.2deg F OR humidity 46% [facility] 01-01-2022 History and physical note I have examined the patient and reviewed the previous H&P completed on date 12/22/21 and there are no changes. See paper H&P in chart Natasha Huerta MD, 01/01/2022, 12:38 PM. [facility] 01-01-2022 History and physical note I have examined the patient and reviewed the previous H&P completed on date 12/22/21 and there are no changes. See paper H&P in chart Natasha Huerta MD, 01/01/2022, 12:38 PM. documented in this encounter [facility] 12-22-2021 History of Presen t illness Narrative General Plastics Review of Systems: Do you have any of the following: Chills, Fatigue, Fever or Night Sweats: no. Ear pain or eye discharge: no. Hearing loss or visual changes: no. Sore throat or chronic cough: no. Shortness of breath: no. Chest pain, swelling, or heart palpitations: no. Abdominal pain: no. Constipation or diarrhea: no. Heartburn or Nausea: no. Rash or skin problems: no. Dizziness or numbness: no. Headaches or Migraines: no. Seizures: no. Joint pain, joint swelling or muscle weakness: no. Bruise or bleed easily: no. Any swollen lymph nodes: no. Have you used any nicotine products in the last 3 months? no. Do you use any cannabis, THC or marijuana containing products? no. Are you currently taking the medication Adipex? no. Subjective: Carlton Cordova is an 66 y.o. male who presents for concerns about a lesion on his nose and one on left posterior lower leg. He also is concerned about a lesion on the right side of his lower right leg. Allergies Allergen Reactions Ciprofloxacin Levofloxacin Current Outpatient Medications Medication Sig Dispense Refill benzonatate (Tessalon Perles) 100 MG capsule Take 1 capsule by mouth 3 times daily as needed for Cough. 15 capsule 0 cyclobenzaprine 10 MG tablet HYDROmorphone 2 MG tablet LISINOPRIL PO Take by mouth. omeprazole [address] capsule oxyCODONE 5 MG tablet Take 5 mg by mouth Every 4 hours as needed. oxyCODONE HCl 10 MG tablet albuterol 108 (90 Base) MCG/ACT Aero Soln inhaler Inhale 2 puffs every 4 hours as needed for up to 7 days. 18 g 0 No current facility-administered medications for this visit. 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 EXCISION LESION SKIN EAR EYELID FACE LIP NOSE Right 02/29/2020 Excision BCC Rt lower eyelid w/ Frozen Section (1cm) History reviewed. No pertinent family history. Social History Socioeconomic History Marital status: Spouse name: Not on file Number of children: Not on file Years of education: Not on file Highest education level: Not on file Occupational History Not on file Tobacco Use Smoking status: Former Smoker Quit date: 08/15/2020 Years since quittin.3 Smokeless tobacco: Never Used Vaping Use Vaping Use: Never used Substance and Sexual Activity Alcohol use: Not Currently Drug use: Never Sexual activity: Not on file Other Topics Concern Service Not Asked Blood Transfusions Not Asked Caffeine Concern Not Asked Occupational Exposure Not Asked Hobby Hazards Not Asked Sleep Concern Not Asked Stress Concern Not Asked Weight Concern Not Asked Special Diet Not Asked Back Care Not Asked Exercise Not Asked Bike Helmet Not Asked Seat Belt Not Asked Domestic Violence No Social History Narrative Not on file Social Determinants of Health Financial Resource Strain: Not on file Food Insecurity: Not on file Transportation Needs: Not on file Physical Activity: Not on file Stress: Not on file Social Connections: Not on file Intimate Partner Violence: Not on file Housing Stability: Not on file Review of Systems Pertinent items are noted in HPI. General Plastics Review of Systems: Do you have any of the following: Chills, Fatigue, Fever or Night Sweats: no. Ear pain or eye discharge: no. Hearing loss or visual changes: no. Sore throat or chronic cough: no. Shortness of breath: no. Chest pain, swelling, or heart palpitations: no. Abdominal pain: no. Constipation or diarrhea: no. Heartburn or Nausea: no. Rash or skin problems: no. Dizziness or numbness: no. Headaches or Migraines: no. Seizures: no. Joint pain, joint swelling or muscle weakness: no. Bruise or bleed easily: no. Any swollen lymph nodes: no. Have you used any nicotine products in the last 3 months? no. Do you use any cannabis, THC or marijuana containing products? no. Are you currently taking the medication Adipex? no. Objective: BP 143/75 Pulse 88 Temp 98.6 F (37 C) (Temporal) Ht 1.803 m (5' 11 ) Wt 85.3 kg (188 lb) BMI 26.22 kg/m Smoking Status Former Smoker General: alert, cooperative, no distress, appears stated age Skin: Small pink raised lesion on the 's supratip area of the nose. Hyperkeratotic nodular lesion of right lateral lower leg and left posterior lower leg Eyes: conjunctivae/corneas clear. PERRL, EOM's intact. Mouth: no lesions Lymph Nodes: Cervical, supraclavicular, and axillary nodes normal. Lungs: clear to auscultation bilaterally Heart: regular rate and rhythm, S1, S2 normal, no murmur Abdomen: soft, non-tender. No masses, no organomegaly Extremities: extremities normal, atraumatic, no edema Neurologic: negative Psychiatric: non focal. Judgement and Affect WNL. Assessment: Lesions of nose, right and left lower legs Plan: The procedure for excision / biopsy was reviewed with the patient. They are aware that this will be done in a procedure room at the hospital. Alternatives and risks were also reviewed. (these include but are not exclusive of scar tissue, tenderness, and potential need for further surgery.) The specimen will be evaluated by pathology. The patient is aware of the potential need for further surgery depending on the results. We will SCHEDULE THE PROCEDURE in the near future. SURGERY TO BE SCHEDULED FOLLOWS: ANESTHESIA: local PROCEDURE: 1. Excision lesion nose 2 . Excision lesion right lateral lower leg 3. Excision lesion left posterior lower leg documented in this encounter [facility] 11-18-2021 History of Presen t illness Narrative General Plastics Review of Systems: Do you have any of the following: Chills, Fatigue, Fever or Night Sweats: no. Ear pain or eye discharge: no. Hearing loss or visual changes: no. Sore throat or chronic cough: no. Shortness of breath: no. Chest pain, swelling, or heart palpitations: no. Abdominal pain: no. Constipation or diarrhea: no. Heartburn or Nausea: no. Rash or skin problems: no. Dizziness or numbness: no. Headaches or Migraines: no. Seizures: no. Joint pain, joint swelling or muscle weakness: no. Bruise or bleed easily: no. Any swollen lymph nodes: no. Have you used any nicotine products in the last 3 months? no. Do you use any cannabis, THC or marijuana containing products? no. Are you currently taking the medication Adipex? no. Subjective: Carlton Cordova is an 66 y.o. male who presents for evaluation of skin cancer removed from his ambrocio. He denies any problems. Allergies Allergen Reactions Ciprofloxacin Levofloxacin Current Outpatient Medications Medication Sig Dispense Refill cyclobenzaprine 10 MG tablet HYDROmorphone 2 MG tablet LISINOPRIL PO Take by mouth. omeprazole [address] capsule oxyCODONE 5 MG tablet Take 5 mg by mouth Every 4 hours as needed. oxyCODONE HCl 10 MG tablet albuterol 108 (90 Base) MCG/ACT Aero Soln inhaler Inhale 2 puffs every 4 hours as needed for up to 7 days. 18 g 0 benzonatate (Tessalon Perles) 100 MG capsule Take 1 capsule by mouth 3 times daily as needed for Cough. (Patient not taking: Reported on 11/18/2021) 15 capsule 0 No current facility-administered medications for this visit. 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 EXCISION LESION SKIN EAR EYELID FACE LIP NOSE Right 02/29/2020 Excision BCC Rt lower eyelid w/ Frozen Section (1cm) History reviewed. No pertinent family history. Social History Socioeconomic History Marital status: Spouse name: Not on file Number of children: Not on file Years of education: Not on file Highest education level: Not on file Occupational History Not on file Tobacco Use Smoking status: Former Smoker Quit date: 08/15/2020 Years since quittin.2 Smokeless tobacco: Never Used Vaping Use Vaping Use: Never used Substance and Sexual Activity Alcohol use: Not Currently Drug use: Never Sexual activity: Not on file Other Topics Concern Service Not Asked Blood Transfusions Not Asked Caffeine Concern Not Asked Occupational Exposure Not Asked Hobby Hazards Not Asked Sleep Concern Not Asked Stress Concern Not Asked Weight Concern Not Asked Special Diet Not Asked Back Care Not Asked Exercise Not Asked Bike Helmet Not Asked Seat Belt Not Asked Domestic Violence No Social History Narrative Not on file Social Determinants of Health Financial Resource Strain: Not on file Food Insecurity: Not on file Transportation Needs: Not on file Physical Activity: Not on file Stress: Not on file Social Connections: Not on file Intimate Partner Violence: Not on file Housing Stability: Not on file Review of Systems Pertinent items are noted in HPI. General Plastics Review of Systems: Do you have any of the following: Chills, Fatigue, Fever or Night Sweats: no. Ear pain or eye discharge: no. Hearing loss or visual changes: no. Sore throat or chronic cough: no. Shortness of breath: no. Chest pain, swelling, or heart palpitations: no. Abdominal pain: no. Constipation or diarrhea: no. Heartburn or Nausea: no. Rash or skin problems: no. Dizziness or numbness: no. Headaches or Migraines: no. Seizures: no. Joint pain, joint swelling or muscle weakness: no. Bruise or bleed easily: no. Any swollen lymph nodes: no. Have you used any nicotine products in the last 3 months? no. Do you use any cannabis, THC or marijuana containing products? no. Are you currently taking the medication Adipex? no. Objective: BP (!) 161/92 Pulse 75 Temp 97.7 F (36.5 C) (Temporal) Ht 1.803 m (5' 11 ) Wt 83.5 kg (184 lb) BMI 25.66 kg/m Smoking Status Former Smoker The incision is well approximated. There is no evidence of infection. Remaining reinforcing sutures are removed and Aquaphor was placed. The leg was then rewrapped with Coban. Assessment: Status post excision SCC lower leg with clear margins Plan: The pt is to call with any further problems or questions, otherwise I will see them back PRN. documented in this encounter [facility] 2021 History of Presen t illness Narrative General Plastics Review of Systems: Do you have any of the following: Chills, Fatigue, Fever or Night Sweats: no. Ear pain or eye discharge: no. Hearing loss or visual changes: no. Sore throat or chronic cough: no. Shortness of breath: no. Chest pain, swelling, or heart palpitations: no. Abdominal pain: no. Constipation or diarrhea: no. Heartburn or Nausea: no. Rash or skin problems: no. Dizziness or numbness: no. Headaches or Migraines: no. Seizures: no. Joint pain, joint swelling or muscle weakness: no. Bruise or bleed easily: no. Any swollen lymph nodes: no. Have you used any nicotine products in the last 3 months? no. Do you use any cannabis, THC or marijuana containing products? no. Are you currently taking the medication Adipex? no. Subjective: Carlton Cordova is an 66 y.o. male who presents for evaluation ofExcision scc right leg with frozen section on 10/22/21. He denies any pain. Sutures are intact. Allergies Allergen Reactions Ciprofloxacin Levofloxacin Current Outpatient Medications Medication Sig Dispense Refill benzonatate (Tessalon Perles) 100 MG capsule Take 1 capsule by mouth 3 times daily as needed for Cough. 15 capsule 0 cyclobenzaprine 10 MG tablet HYDROmorphone 2 MG tablet LISINOPRIL PO Take by mouth. omeprazole [address] capsule oxyCODONE 5 MG tablet Take 5 mg by mouth Every 4 hours as needed. oxyCODONE HCl 10 MG tablet albuterol 108 (90 Base) MCG/ACT Aero Soln inhaler Inhale 2 puffs every 4 hours as needed for up to 7 days. 18 g 0 No current facility-administered medications for this visit. 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 EXCISION LESION SKIN EAR EYELID FACE LIP NOSE Right 02/29/2020 Excision BCC Rt lower eyelid w/ Frozen Section (1cm) History reviewed. No pertinent family history. Social History Socioeconomic History Marital status: Spouse name: Not on file Number of children: Not on file Years of education: Not on file Highest education level: Not on file Occupational History Not on file Tobacco Use Smoking status: Former Smoker Quit date: 08/15/2020 Years since quittin.2 Smokeless tobacco: Never Used Vaping Use Vaping Use: Never used Substance and Sexual Activity Alcohol use: Not Currently Drug use: Never Sexual activity: Not on file Other Topics Concern Service Not Asked Blood Transfusions Not Asked Caffeine Concern Not Asked Occupational Exposure Not Asked Hobby Hazards Not Asked Sleep Concern Not Asked Stress Concern Not Asked Weight Concern Not Asked Special Diet Not Asked Back Care Not Asked Exercise Not Asked Bike Helmet Not Asked Seat Belt Not Asked Domestic Violence No Social History Narrative Not on file Social Determinants of Health Financial Resource Strain: Not on file Food Insecurity: Not on file Transportation Needs: Not on file Physical Activity: Not on file Stress: Not on file Social Connections: Not on file Intimate Partner Violence: Not on file Housing Stability: Not on file Review of Systems Pertinent items are noted in HPI. General Plastics Review of Systems: Do you have any of the following: Chills, Fatigue, Fever or Night Sweats: no. Ear pain or eye discharge: no. Hearing loss or visual changes: no. Sore throat or chronic cough: no. Shortness of breath: no. Chest pain, swelling, or heart palpitations: no. Abdominal pain: no. Constipation or diarrhea: no. Heartburn or Nausea: no. Rash or skin problems: no. Dizziness or numbness: no. Headaches or Migraines: no. Seizures: no. Joint pain, joint swelling or muscle weakness: no. Bruise or bleed easily: no. Any swollen lymph nodes: no. Have you used any nicotine products in the last 3 months? no. Do you use any cannabis, THC or marijuana containing products? no. Are you currently taking the medication Adipex? no. Objective: BP 136/74 Pulse 68 Temp 97.2 F (36.2 C) (Temporal) Ht 1.803 m (5' 11 ) Wt 83.5 kg (184 lb) BMI 25.66 kg/m Smoking Status Former Smoker The excision site on the Lower leg is healing satisfactorily. There is no evidence of infection. Sutures are intact. The wound is dry. Pathology reveals a keratoacanthoma with clear margins-no further treatment is needed. He has a small hyperkeratotic lesion distal to this which flakes off easily. I indicated this may be an AK. He is to continue current management of the lower leg Assessment: SCC of lower leg Plan: Pt to RETURN in 2-3 weeks FOR RECHECK. They are encouraged to call in the interim with any problems or questions relating to this encounter. documented in this encounter [facility] 10-22-2021 Nurse Note Discharge instructions reviewed with patient. He expressed an understanding of instructions. No drainage noted on dressing. Patient to outpatient [facility], report given to Jose G Macias RN, patient awake, alert and oriented, denies pain at surgery site, Complaint of back pain, monitors reapplied, vital signs stable. Fire risk level of 1 determined during Time Out. Nonflammable prep in use. Monitored by: room staff OR room temp: 68F OR room humidity: 42% documented in this encounter [facility] 10-22-2021 Nurse Surgical operation note Discharge instructions reviewed with patient. He expressed an understanding of instructions. No drainage noted on dressing. [facility] 10-22-2021 Hospital Discharg e instructions Natasha Huerta MD - 10/22/2021 8:43 AM EDT Keep your leg elevated as much as you can to reduce swelling and bleeding. Take the oral antibiotic (Keflex) 2 x a day until finished. May remove the dressing to shower. Apply antibiotic ointment, gauze, and a wrap to keep the area clean. documented in this encounter [facility] 10-22-2021 Nurse Surgical operation note Patient to outpatient [facility], report given to Jose G Macias RN, patient awake, alert and oriented, denies pain at surgery site, Complaint of back pain, monitors reapplied, vital signs stable. Fire risk level of 1 determined during Time Out. Nonflammable prep in use. Monitored by: room staff OR room temp: 68F OR room humidity: 42% [facility] 10-22-2021 Note Formatting of this n ote is different from the original. POST OPERATIVE/PROCEDURE NOTE Carlton Cordova ([id number]) SURGEON Surgeon(s) and Role: * Natasha Huerta MD - Primary AIRPLANE AND ENGINE INSPECTOR None ANESTHESIOLOGIST No anesthesia staff entered. SURGICAL STAFF Sociology Research Assistant: Carmen Loomis RN Registered Nurse Spinal Surgeon: Beena Bro RN Licensed Electrician: Keyonna Garcia PROCEDURE PERFORMED Excisiion SCC right leg with FS (3.0cm) PRIMARY CLOSURE Yes ANESTHESIA (type of) Local ESTIMATED BLOOD LOSS Minimal DRAINS None BLOOD PRODUCTS None FLUIDS No intake or output data in the 24 hours ending 10/22/21 0839 PRE OPERATIVE DIAGNOSIS Neoplasm of uncertain behavior of skin [D48.5] POST OPERATIVE DIAGNOSIS Post-Op Diagnosis Codes: * Neoplasm of uncertain behavior of skin [D48.5] FINDINGS pending CONDITION OF PATIENT stable COMPLICATIONS None GRAFTS AND/OR IMPLANTS See OR Nursing Documentation SPECIMENS Microbiology specimen sent ID Type Source Tests Collected by Time Destination A : Squamous cell carcinoma right lower leg Frozen TISSUE SURGICAL PATHOLOGY REQUEST Natasha Huerta MD 10/22/2021 [id number] Natasha Huerta MD October 22, 2021 8:39 AM [facility] 10-22-2021 Miscellaneous Notes POST OPERATIVE/PROCEDURE NOTE Carlton Cordova ([id number]) SURGEON Surgeon(s) and Role: * Natasha Huerta MD - Primary AIRPLANE AND ENGINE INSPECTOR None ANESTHESIOLOGIST No anesthesia staff entered. SURGICAL STAFF Sociology Research Assistant: Carmen Loomis RN Registered Nurse Spinal Surgeon: Beena Bro isobutylene operator chiefLicensed Electrician: Heaven Hepner PROCEDURE PERFORMED Excisiion SCC right leg with FS (3.0cm) PRIMARY CLOSURE Yes ANESTHESIA (type of) Local ESTIMATED BLOOD LOSS Minimal DRAINS None BLOOD PRODUCTS None FLUIDS No intake or output data in the 24 hours ending 10/22/21 0839 PRE OPERATIVE DIAGNOSIS Neoplasm of uncertain behavior of skin [D48.5] POST OPERATIVE DIAGNOSIS Post-Op Diagnosis Codes: * Neoplasm of uncertain behavior of skin [D48.5] FINDINGS pending CONDITION OF PATIENT stable COMPLICATIONS None GRAFTS AND/OR IMPLANTS See OR Nursing Documentation SPECIMENS Microbiology specimen sent ID Type Source Tests Collected by Time Destination A : Squamous cell carcinoma right lower leg Frozen TISSUE SURGICAL PATHOLOGY REQUEST Natasha Huerta MD 10/22/2021 [id number] Natasha Huerta MD October 22, 2021 8:39 AM documented in this encounter [facility] 10-22-2021 History and physical note I have examined the patient and reviewed the previous H&P completed on date 10/14/21 and there are no changes. See paper H&P in chart Natasha Huerta MD, 10/22/2021, 7:18 AM. [facility] 10-22-2021 History and physical note I have examined the patient and reviewed the previous H&P completed on date 10/14/21 and there are no changes. See paper H&P in chart Natasha Huerta MD, 10/22/2021, 7:18 AM. documented in this encounter [facility] 06-23-2021 History of Presen t illness Narrative Patient is here for Prostate MRI results. MRI showed stable PI-RAD 4 lesion with no evidence of extraprostatic extension. Patient has hx of elevated PSA. Most recent PSA was 8.41 on 06/23. Prior PSA was 5.61 on 06/22. Prior PSA was 4.15 on 06/21. Patient has has 1 negative MRI bx on 08/20. Also a negative Trus bx in 2018. Patient has hx of bladder cancer. Normal cysto on 07/21. Chronic BPH sx are mild and stable. Denies urgency and frequency. Denies dysuria. Denies hematuria. Nocturia x1. No medication for CRUZ'TS. ED is chronic. No medication for this. [facility] DO Work Phone: 06-23-2021 History of Presen t illness Narrative Patient has hx of elevated PSA. Most recent PSA was 12 (11/20) Previous PSA was 8.41 on 06/23. Prior PSA was 5.61 on 06/22. Prior PSA was 4.15 on 06/21. Patient had an MR on 08/21 that showed stable PI-RAD 4 lesion. Patient has has 1 negative MRI bx on 08/20. Also a negative Trus bx in 2018. Patient has hx of bladder cancer. Normal cysto on 07/21. Chronic BPH sx are mild and stable. Denies urgency and frequency. Denies dysuria. Denies hematuria. Nocturia x1. No medication for CRUZ'TS. ED is chronic. No medication for this. [facility] 232 DO Work Phone: [facility] Diagnosis Squamous cell skin cancer- Primary Squamous cell carcinoma of skin, site unspecified [facility] Diagnosis Squamous cell skin cancer- Primary Squamous cell carcinoma of skin, site unspecified [facility] Diagnosis Neoplasm of uncertain behavior of skin- Primary Neoplasm of uncertain behavior of skin [facility] Diagnosis Neoplasm of uncertain behavior of skin [facility] Diagnosis Squamous cell skin cancer- Primary Squamous cell carcinoma of skin, site unspecified Benign neoplasm of skin, unspecified location [facility] Diagnosis Squamous cell skin cancer- Primary Squamous cell carcinoma of skin, site unspecified Benign neoplasm of skin, unspecified location [facility] Diagnosis Malignant neoplasm of skin of right leg- Primary Malignant neoplasm skin of nose Unspecified malignant neoplasm of skin of other and unspecified parts of face Malignant neoplasm of skin of right leg Malignant neoplasm skin of nose Unspecified malignant neoplasm of skin of other and unspecified parts of face [facility] Diagnosis Chest pain, unspecified type- Primary SOB (shortness of breath) Shortness of breath Heart palpitations Palpitations [facility] Diagnosis Prostate cancer (CMS/HCC)- Primary Malignant neoplasm of prostate Prostate cancer (CMS/HCC) Malignant neoplasm of prostate documented in this encounter [facility] Work Phone: Evaluation note* Diagnosis Malignant neoplasm of prostate (CMS/HCC) Malignant neoplasm of prostate Elevated prostate specific antigen (PSA) documented in this encounter [facility] Work Phone: Reason for visit Narrative* Auth/Cert Specialty Diagnoses / Procedures Referred By Contpatito t Referred To Contact Diagnoses Neoplasm of uncertain behavior of skin Neoplasm of uncertain behavior of skin [D48.5] Procedures DE EXC SKIN MALIG 2.1-3CM TRUNK,ARM,LEG EXCISION LESION SKIN EXTREMITY Natasha Huerta MD [address] [place] [address] Referral ID Status Reason Start Date Expiration Date Visits Re quested Visits Authorized [id number] 10/16/2021 1 1 [facility] Auth/Cert Specialty Diagnoses / Procedures Referred By Rosy t Referred To Contact Diagnoses Neoplasm of uncertain behavior of skin Neoplasm of uncertain behavior of skin [D48.5] Procedures DE EXC SKIN BENIG 2.1-3CM FACE,FACIAL DE EXC SKIN BENIG 2.1-3CM TRUNK,ARM,LEG EXCISION LESION SKIN EAR EYELID FACE LIP NOSE EXCISION LESION SKIN EXTREMITY Natasha Huerta MD [address] [place] [address] Referral ID Status Reason Start Date Expiration Date Visits Re quested Visits Authorized [id number] 12/22/2021 1 1 [facility] Summary Purpose Family History Unknown Family Member Name Dates Details Family history of malignant neoplasm of skin: Sister(V16.8, Z80.8) Status:Active Unknown Family Member Name Dates Details Family history of malignant neoplasm of skin: Sister(V16.8, Z80.8) Status:Active Unknown Family Member Name Dates Details Family history of malignant neoplasm of skin: Sister(V16.8, Z80.8) Status:Active Unknown Family Member Name Dates Details Family history of malignant neoplasm of skin: Sister(V16.8, Z80.8) Status:Active Unknown Family Member Name Dates Details Family history of malignant neoplasm of skin: Sister(V16.8, Z80.8) Status:Active Unknown Family Member Name Dates Details Family history of malignant neoplasm of skin: Sister(V16.8, Z80.8) Status:Active Unknown Family Member Name Dates Details Family history of malignant neoplasm of skin: Sister(V16.8, Z80.8) Status:Active Unknown Family Member Name Dates Details Family history of malignant neoplasm of skin: Sister(V16.8, Z80.8) Status:Active Unknown Family Member Name Dates Details Family history of malignant neoplasm of skin: Sister(V16.8, Z80.8) Status:Active Unknown Family Member Name Dates Details Family history of malignant neoplasm of skin: Sister(V16.8, Z80.8) Status:Active Advance Directives Documents on File Type Date 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 Advance Directives and Living Will Latest Code Status on File Code Status Date Activated Date Inactivated Comments Full Code 03/01/2023 6:59 AM Question Answer Comments Plan of Care: Code Status Discussion Completed Decision Maker: Patient Latest Code Status on File Code Status Date Activated Date Inactivated Comments Full Code 03/01/2023 6:59 AM 03/01/2023 12:27 PM Question Answer Comments Plan of Care: Code Status Discussion Completed Decision Maker: Patient Discharge Instructions * Instructions* Natasha Huerta MD - 02/29/2020 Keep your back elevated (recliner position) for the next 2-3 nights to decrease bleeding and swelling. Avoid heaving lifting for 2-3 days Take the oral antibiotic (Keflex) 2 x a day until finished. Apply a small amount of antibiotic ointment given to you 2 x a day. May apply cold compresses to the site today to decrease swelling and bruising. documented in this encounter Assessments Diagnosis Basal cell carcinoma (BCC) of skin of face, unspecified part of face Diagnosis Basal cell carcinoma (BCC) of skin of face, unspecified part of face- Primary History of Present Illness * Natasha Huerta MD - 03/11/2020 11:30 AM EST Subjective: Carlton Cordova is an 64 y.o. male who presents for evaluation of the lesion removed from his right eyelid. He denies any problem other than itching.. No Known Allergies Current Outpatient Medications Medication Sig Dispense Refill cyclobenzaprine 10 MG tablet LISINOPRIL PO Take by mouth. omeprazole [address] capsule oxyCODONE HCl 10 MG tablet HYDROmorphone 2 MG tablet oxyCODONE 5 MG tablet Take 5 mg by mouth Every 4 hours as needed. No current facility-administered medications for this visit. Past Medical History: Diagnosis Date CA in situ bladder CA of skin Essential hypertension, benign Past Surgical History: Procedure Laterality Date EXCISION LESION SKIN EAR EYELID FACE LIP NOSE Right 02/29/2020 Excision BCC Rt lower eyelid w/ Frozen Section (1cm) No family history on file. Social History Socioeconomic History Marital status: Spouse name: Not on file Number of children: Not on file Years of education: Not on file Highest education level: Not on file Occupational History Not on file Social Needs Financial resource strain: Not on file Food insecurity Worry: Not on file Inability: Not on file Transportation needs Medical: Not on file Non-medical: Not on file Tobacco Use Smoking status: Former Smoker Smokeless tobacco: Never Used Substance and Sexual Activity Alcohol use: Not on file Drug use: Not on file Sexual activity: Not on file Lifestyle Physical activity Days per week: Not on file Minutes per session: Not on file Stress: Not on file Relationships Social connections Talks on phone: Not on file Gets together: Not on file Attends advent service: Not on file Active member of club or organization: Not on file Attends meetings of clubs or organizations: Not on file Relationship status: Not on file Intimate partner violence Fear of current or ex partner: Not on file Emotionally abused: Not on file Physically abused: Not on file Forced sexual activity: Not on file Other Topics Concern Not on file Social History Narrative Not on file Review of Systems Pertinent items are noted in HPI. General Plastics Review of Systems: Do you have any of the following: Chills, Fatigue, Fever or Night Sweats: no. Ear pain or eye discharge: no. Hearing loss or visual changes: no. Sore throat or chronic cough: no. Shortness of breath: no. Chest pain, swelling, or heart palpitations: no. Abdominal pain: no. Constipation or diarrhea: no. Heartburn or Nausea: no. Rash or skin problems: no. Dizziness or numbness: no. Headaches or Migraines: no. Seizures: no. Joint pain, joint swelling or muscle weakness: yes. Bruise or bleed easily: no. Any swollen lymph nodes: no. Objective: BP (!) 155/106 (BP Location: Right arm, BP Position: Sitting) Pulse 69 Temp 97.2 F (36.2 C) (Temporal) Wt 87.3 kg (192 lb 6.4 oz) BMI 26.83 kg/m Smoking Status Former Smoker The incision of the right lower eyelid is well approximated and healing well. The pt was shown how to massage the area with pressure. Assessment: Path is c/w BCC with clear margins---no further tx is needed. Plan: The pt is to call with any further problems or questions, otherwise I will see them back PRN. Sheryl Mendoza - 03/11/2020 11:30 AM EST General Plastics Review of Systems: Do you have any of the following: Chills, Fatigue, Fever or Night Sweats: no. Ear pain or eye discharge: no. Hearing loss or visual changes: no. Sore throat or chronic cough: no. Shortness of breath: no. Chest pain, swelling, or heart palpitations: no. Abdominal pain: no. Constipation or diarrhea: no. Heartburn or Nausea: no. Rash or skin problems: no. Dizziness or numbness: no. Headaches or Migraines: no. Seizures: no. Joint pain, joint swelling or muscle weakness: yes. Bruise or bleed easily: no. Any swollen lymph nodes: no. documented in this encounter Chief Complaint Prostate MRI results3 mo w/ psa4 mo w/ psaHistory of Bladder CancerCysto-History of Bladder CancerProstate MRI bx results Reason for Referral Specialty Diagnoses / Procedures Referred By Rosy fernandez Referred To Contact Cardiology Diagnoses Chest pain, unspecified type SOB (shortness of breath) Heart palpitations Susan Chavez, IT INTERN [address] [place] [address] [facility] [address] [facility] [place] [address] Referral ID Status Reason Start Date Expiration Date V isits Requested Visits Authorized [id number] Authorized 05/24/2022 05/24/2023 1 1 Additional Source Comments (unrecognized sect ion and content) No Status Records FoundNo Status Records FoundNo Status Records FoundNo Status Records FoundNo Status Records FoundNo Status Records FoundNo Status Records FoundNo Status Records FoundNo Status Records FoundNo Status Records FoundNo Status Records Found INFORMATION SOURCE (unrecogn ized section and content) DATE CREATED AUTHOR AUTHOR'S ORGANIZ ATION 06/13/2018 [facility] DATE CREATED AUTHOR AUTHOR'S ORGANIZ ATION 05/05/2022 [facility] DATE CREATED AUTHOR AUTHOR'S ORGANIZ ATION 06/02/2022 [facility] DATE CREATED AUTHOR AUTHOR'S ORGANIZ ATION 07/04/2022 [facility] DATE CREATED AUTHOR AUTHOR'S ORGANIZ ATION 10/26/2022 [facility] DATE CREATED AUTHOR AUTHOR'S ORGANIZ ATION 11/26/2022 [facility] DATE CREATED AUTHOR AUTHOR'S ORGANIZ ATION 12/21/2022 [facility] DATE CREATED AUTHOR AUTHOR'S ORGANIZ ATION 01/17/2023 [facility] DATE CREATED AUTHOR AUTHOR'S ORGANIZ ATION 01/17/2023 [facility] DATE CREATED AUTHOR AUTHOR'S ORGANIZ ATION 03/03/2023 [facility] Reason for Visit (unrecogniz ed section and content) Reason Comments Post Op Visit Lesion Rt lower eyel id. C/o itching. Reason Comments Post Op Visit Excision scc right l eg with frozen section on 10/22/21. He denies any pain. Sutures are intact. Reason Comments Follow-up Excision scc right l eg with frozen section on 10/22/21. Dressing intact. Denies pain. Reason Comments Follow-up Excision SCC right l eg frozen section on 10/22/21. He denies any issues to his leg but has concerns about a lesion on his nose and one on left posterior lower leg. He also is concerned about a lesion on the right side of his lower right leg. Reason Comments Post Op Visit Excision lesion righ t lateral leg and left posterior calf on 01/01/22. He denies any pain or discomfort to the areas. Reason Comments Follow-up Excision lesion on n ose, right lateral leg and left posterior leg on 01/01/22. He denies any pain or discomfort today. Reason Comments Skin Lesion Carlton is here today fo r an area to his nose and the posterior right upper leg. Areas were biopsied about 3 weeks ago. He denies any pain or discomfort at this time. Reason Onset Date Comments Medication Refill 06/04/2022 Reason Onset Date Comments Medication Refill 08/30/2022 Specialty Diagnoses / Procedures Referred By Rosy t Referred To Contact Diagnoses Prostate cancer (CMS/HCC) Prostate cancer ([facility]/HCC) [C61] Procedures CHG US TRANSRECTAL DE PLMT INTERSTITIAL DEV RADIAT TX PROSTATE 1/MULT SpaceOAR with Fudicial Markers Insertion Fiducial Marker Prostate Malik Delong MD [address] [place] [address] [id number] Referral ID Status Reason Start Date Expiration Date Visits Re quested Visits Authorized [id number] 1 1 Reason Comments Other PROSTATE FUSION BIOP SY Natasha Huerta MD - 02/29/2020 10:22 AM EDT H&P Notes (unrecognized sect ion and content) Subjective: Carlton Cordova is an 64 y.o. male who presents for evaluation of a recently bxed BCC of his right inferior lateral eyelid.. Past Medical History: Diagnosis Date CA in situ bladder CA of skin Essential hypertension, benign History reviewed. No pertinent family history. No current facility-administered medications for this encounter. No Known Allergies Social History Socioeconomic History Marital status: Spouse name: Not on file Number of children: Not on file Years of education: Not on file Highest education level: Not on file Occupational History Not on file Social Needs Financial resource strain: Not on file Food insecurity Worry: Not on file Inability: Not on file Transportation needs Medical: Not on file Non-medical: Not on file Tobacco Use Smoking status: Former Smoker Smokeless tobacco: Never Used Substance and Sexual Activity Alcohol use: Not on file Drug use: Not on file Sexual activity: Not on file Lifestyle Physical activity Days per week: Not on file Minutes per session: Not on file Stress: Not on file Relationships Social connections Talks on phone: Not on file Gets together: Not on file Attends advent service: Not on file Active member of club or organization: Not on file Attends meetings of clubs or organizations: Not on file Relationship status: Not on file Intimate partner violence Fear of current or ex partner: Not on file Emotionally abused: Not on file Physically abused: Not on file Forced sexual activity: Not on file Other Topics Concern Not on file Social History Narrative Not on file Review of Systems Pertinent items are noted in HPI. Objective: BP 129/86 (BP Location: Left arm, BP Position: Sitting) Pulse 75 Temp 98.6 F (37 C) (Temporal) Resp 18 Ht 1.803 m (5' 11 ) Wt 87.5 kg (193 lb) BMI 26.92 kg/m Smoking Status Former Smoker General: alert, cooperative, no distress, appears stated age Skin: Nodular lesion of right inferior eyelid Eyes: conjunctivae/corneas clear. PERRL, EOM's intact. Mouth: MMM no lesions Lymph Nodes: Cervical, supraclavicular, and axillary nodes normal. Lungs: clear to auscultation bilaterally Heart: regular rate and rhythm, S1, S2 normal, no murmur Abdomen: soft, non-tender. No masses, no organomegaly Extremities: extremities normal, atraumatic, no edema Neurologic: negative Psychiatric: non focal. Judgement and Affect WNL. Assessment: Lesion right lower eyelid Plan: 1. Discussed the risk of surgery including bleeding, infection, pain, numbness, assymetry, need for further surgry, scar tissue, DVT, and even . The patient voices Understanding of the risks, any and all questions were answered to the patient's satisfaction. 2. Proposed procedure Excision BCC right lower eyelid with FS documented in this encounter Dari White RN - 02/29/2020 11:01 AM EDTGDari aguilera RN - 02/29/2020 10:52 AM EDT Nursing Notes (unrecognized section and content) Transferred to PACU via bed with this nurse. Bedside report given to Khushbu RN Temp-63.1 Humidity-50.0 documented in this encounter Op Note - Natasha Huerta MD - 02/29/2020 11:28 AM EDTBrief Op Note - Natasha Huerta MD - 02/29/2020 11:14 AM EDT Miscellaneous Notes (unrecog nized section and content) Operative Report DATE PERFORMED: 02/29/2020 SURGEON(S): Natasha Huerta MD PREOPERATIVE DIAGNOSIS: Biopsy-proven basal cell skin cancer of right lower eyelid. POSTOPERATIVE DIAGNOSIS: Biopsy-proven basal cell skin cancer of right lower eyelid. PROCEDURE: Excision of basal cell skin cancer right lower eyelid with frozen section (1.0 cm). INDICATIONS: This 64-year-old male patient presents with a biopsy- proven basal cell skin cancer of the right lower eyelid. He presents for re-excision with frozen section evaluation of margins. PROCEDURE IN DETAIL: The patient was brought to the operating room and placed on the operating room table in the supine position. Two drops of tetracaine had been placed in the right eye prior to proceeding. A 1% Xylocaine with epinephrine was used for local anesthetic. The patient was prepped and draped in the usual sterile fashion. We initially began with doing an excision around the previous scar tissue and nodular lesion. This was passed off the operative field for frozen section. Hemostasis was controlled with cautery. Frozen section reveals clear margins and therefore the wound was closed using a combination of interrupted and running plain gut suture. Ophthalmic antibiotic ointment was placed on the site. He tolerated the procedure well and was taken to the recovery area in an awake and stable condition. Needle and sponge counts were correct. Dictated By: MD Natasha Rico MD ATTENDING TG/MedQ JOB: [id number] DOC: [id number] POST OPERATIVE/PROCEDURE NOTE Carlton Cordova ([id number]) SURGEON Surgeon(s) and Role: * Natasha Huerta MD - Primary AIRPLANE AND ENGINE INSPECTOR none ANESTHESIOLOGIST No anesthesia staff entered. SURGICAL STAFF Sociology Research Assistant: Dari White RN; Anne Aguilera RN Scrub Person: Carmen Kirkpatrick PROCEDURE PERFORMED Excision BCC right lower lateral eyelid with FS (1.0cm) PRIMARY CLOSURE Yes ANESTHESIA (type of) Local ESTIMATED BLOOD LOSS Minimal DRAINS none BLOOD PRODUCTS none FLUIDS No intake or output data in the 24 hours ending 02/29/20 1114 PRE OPERATIVE DIAGNOSIS Basal cell carcinoma (BCC) of skin of face, unspecified part of face [C44.310] POST OPERATIVE DIAGNOSIS Basal cell carcinoma (BCC) of skin of face, unspecified part of face [C44.310] FINDINGS pending CONDITION OF PATIENT stable COMPLICATIONS None GRAFTS AND/OR IMPLANTS See OR Nursing Documentation SPECIMENS Microbiology specimen sent ID Type Source Tests Collected by Time Destination A : Basal cell carcinoma right lower eyelid Frozen TISSUE SURGICAL PATHOLOGY REQUEST Natasha Huerta MD 02/29/2020 [id number] Natasha Huerta MD February 29, 2020 11:14 AM documented in this encounter PRN Active and Recently Administ ered Medications (unrecognized section and content) PRN Medication Order 12/30/2021 12/31/2021 01/01/2022 lidocaine 1%/ epinephrine 1:100,000 with sodium bicarbonate 8.4% NEEDED, Starting on Tue01/01/22 at 1320, Until Tue01/01/22 at 1607, Intra-op/Intra-Proc 1320 (Given - Provid er: Natasha Huerta MD - Comment: given to sterile field) sodium chloride 0.9 % irrigation NEEDED, Starting on Tue01/01/22 at 1319, Until Tue01/01/22 at 1607, Intra-op/Intra-Proc 1319 (Given - Provid er: Natasha Huerta MD - Comment: given to sterile field) Scheduled Medication Order 02/27/2023 02/28/2023 03/01/2023 acetaminophen (Tylenol) tablet 975 mg (COMPLETED) 975 mg, oral, Once, On Tue03/01/23 at 0700, For 1 dose, Preprocedure, Administer with small amount of water preoperatively., If ordered PRN for pain, nurse is permitted to administer this medication for higher pain scores based on patient preference? Yes 0704 (Given - Provid er: Fanny Jenkins RN) ondansetron (Zofran) injection 4 mg (COMPLETED) 4 mg, intravenous, Once, On Tue03/01/23 at 0700, For 1 dose, Preprocedure, When administering via IV Push, administer over 3-5 minutes. 0704 (Given - Provid er: Fanny Jenkins RN) Continuous Medication Order 02/27/2023 02/28/2023 03/01/2023 lactated Ringer's infusion 50 mL/hr, intravenous, Continuous, Starting on Tue03/01/23 at 0700, Preprocedure 0703 (New Bag - Prov ider: Fanny Jenkins RN)0942 (Stopped - Provider: Janelle Venegas RN) Care Teams (unrecognized sec tion and content) Barrel Assembly Inspector Relationship Specialty Start Date End Date Skye Parish APRN-IT INTERN [address] [place] [address] PCP - General Nurse Practitioner - [facility] 02/29/20 Barrel Assembly Inspector Relationship Specialty Start Date End Date Skye Parish APRN-IT INTERN [address] [place] [address] PCP - General Nurse Practitioner - [facility] 02/29/20 Barrel Assembly Inspector Relationship Specialty Start Date End Date Skye Parish, MAPPING PILOT-IT INTERN [address] [place] [address] PCP - General Nurse Practitioner - [facility] 02/29/20 Barrel Assembly Inspector Relationship Specialty Start Date End Date Skye Parish, MAPPING PILOT-IT INTERN [address] [place] [address] PCP - General Nurse Practitioner - [facility] 02/29/20 Barrel Assembly Inspector Relationship Specialty Start Date End Date Skye Parish, MAPPING PILOT-IT INTERN [address] [place] [address] PCP - General Nurse Practitioner - [facility] 02/29/20 Barrel Assembly Inspector Relationship Specialty Start Date End Date Skye Parish, MAPPING PILOT-IT INTERN [address] [place] [address] PCP - General Nurse Practitioner - [facility] 02/29/20 Barrel Assembly Inspector Relationship Specialty Start Date End Date Malik Delong MD [address] [place] [address] PCP - General Urologic Surgery 06/07/19 Barrel Assembly Inspector Relationship Specialty Start Date End Date Malik Delong MD [address] [place] [address] PCP - General Urologic Surgery 06/07/19 Barrel Assembly Inspector Relationship Specialty Start Date End Date Susan Chavez CNP [address] [place] [address] PCP - General Nurse Practitioner 05/31/22 Barrel Assembly Inspector Relationship Specialty Start Date End Date Susan Chavez CNP [address] [place] [address] PCP - General Nurse Practitioner 05/31/22 Barrel Assembly Inspector Relationship Specialty Start Date End Date Susan Chavez DANIEL [address] [place] [address] PCP - General Nurse Practitioner 05/31/22 Barrel Assembly Inspector Relationship Specialty Start Date End Date Mike Tinsley DO [address] [place] [address] PCP - General 01/02/19 Barrel Assembly Inspector Relationship Specialty Start Date End Date Mike Tinsley DO [address] [place] [address] PCP - General 01/02/19 FOR RECORDS PERTAINING TO PATIENTS WHO ARE OR HAVE BEEN ENROLLED IN A CHEMICAL DEPENDENCY/SUBSTANCEABUSE PROGRAM, SOME INFORMATION MAY BE OMITTED. This clinical summary was aggregated from multiple sources. Caution should be exercised in using it in the provision of clinical care. This summary normalizes information from multiple sources, and as a consequence, information in this document may materially change the coding, format and clinical context of patient data. In addition, data may be omitted in some cases. CLINICAL DECISIONS SHOULD BE BASED ON THE PRIMARY CLINICAL RECORDS. [facility] [place] [facility]. provides no warranty or guarantee of the accuracy or completeness of information in this document.
--- NOTE | 2023-05-20 10:35 | PCM.HP.BLA ---
History and Physical Date of Admission: 05/20/23 The patient is examined and there are no changes to the exam of 05/17/2023. He presents for excision of a biopsy-proven SCC of his left shoulder. This will be done with frozen section to ensure complete removal. Assessment & Plan Assessment/Plan (1) Squamous cell carcinoma of skin of trunk: PLAN: Plan For excision SCC with FS
[2023-05-20 10:45] VITALS: BP 156/107; PULSE 83; RESP 16; TEMP 36.8; O2SAT 96; BMI 27.4
[2023-05-20 10:49] VITALS: BP 142/105; BP 156/91; BP 169/99; O2SAT 88; O2SAT 89; O2SAT 90; O2SAT 92
[2023-05-20] MEDS: Lidocaine 1% /Epi 1:100 9 ML, Sodium Bicarbonate 1 MEQ OPERA.SITE (11:20)
--- NOTE | 2023-05-20 12:04 | OP.PCM_ITS ---
Problems Associated Problem List Diagnoses (1) Squamous cell carcinoma of skin of trunk: Report of Operation Date of Procedure: 05/20/23 Pre-Operative Diagnosis: Biopsy-proven SCC of left anterior shoulder Post-Operative Diagnosis: Same Surgery/Procedure Performed:: Excision SCC left anterior shoulder with FS (3.0 cm); intermediate closure Surgeon: Natasha Huerta Type of Anesthesia: Local Specimen's removed: SCC left anterior shoulder Estimated Blood Loss (mL): Minimal Description of Procedure: The patient presents for excision of an SCC of the left anterior shoulder. This had been biopsied by his sports marketing specialist. This had positive margins and therefore our goal is for complete excision. With the patient was brought to the operating room and placed on the operating room table in the supine position. The left anterior shoulder was prepped and draped in the usual sterile fashion. 1% Xylocaine with epinephrine is used for local anesthetic. Following this, the previous biopsy site is excised and orientation demarcated for pathology for frozen section evaluation. Hemostasis is controlled with cautery. Frozen section reveals clear margins. The wound is then closed in layers using a Monocryl suture in the subcutaneous tissue and dermis. Skin edges are approximated with a running chromic suture. Dermabond and Steri-Strips were placed on the wound. He tolerated the procedure well was taken to the recovery area in an awake and stable condition. Needle and sponge counts are correct. Complications None Admit VTE Documentation VTE Mechan Device Prophylaxis: None Reason prophylaxis not ordered:: Treatment Not Indicated
--- NOTE | 2023-05-20 12:10 | DCINST_ITS ---
Discharge Instructions Dressing / Incision Additional Dressing/Incision Instructions:: Keep your back elevated (recliner position) for the next 3-4 nights to reduce bruising and swelling. May shower over the area but do not scrub. Take the oral antibiotic 2 times a day until completed Follow Up Care Please Follow Up With: Natasha Huerta MD When: In 2 weeks Test Results: Test results from this visit will be discussed in further detail at your follow- up appointment, if applicable. Discharge Plan Admission Attending Provider: Natasha Huerta Primary Care Provider: Care PhysicianMiroslava Primary Discharge Orders/Prescriptions Prescriptions: No Action fluticasone propion-salmeterol [Advair Diskus] 100-50 mcg/dose blister with device 1 inh inhalation BID benzonatate 100 mg capsule 100 mg PO BID PRN cetirizine [All Day Allergy (cetirizine)] 10 mg tablet 10 mg PO DAILY PRN cyclobenzaprine 10 mg tablet 10 mg PO BID PRN (Reason: muscle spasm) Patient Comments: TAKE 1 TABLET ONCE OR TWICE DAILY NEEDED FOR SPASMS hydroxyzine HCl 25 mg tablet 25 mg PO BID PRN lidocaine 5 % adhesive patch,medicated 1 patch topical DAILY Rx Instructions: leave on most painful area for up to 12 hrs lisinopril 10 mg tablet 10 mg PO DAILY lisinopril 20 mg tablet 20 mg PO DAILY omeprazole 20 mg capsule,delayed release(DR/EC) 20 mg PO DAILY oxycodone-acetaminophen 5-325 mg tablet 1 tab PO Q8H PRN (Reason: pain) cephalexin 500 mg capsule 500 mg PO BID Qty: 10 0RF cephalexin 500 mg capsule 500 mg PO BID Qty: 10 0RF metoprolol succinate 25 mg tablet extended release 24 hr 25 mg PO DAILY Referrals / Follow Up: Care Physician,Miroslava Primary [Primary Care Provider] - Disposition Disposition (needs filled in before D/C Order can be placed): Home, Self Care
[2023-05-20 12:25] VITALS: BP 153/88; PULSE 83; RESP 18; TEMP 36.9; O2SAT 90
== END 2023-05-20 12:33 | disposition home or self-care (01) ==
LOC: SDC 10:15 → AC 10:17
PROVIDERS: Referring Provider Plastic Surgery; Visit Provider Plastic Surgery
PROC: (CPT 11403; principal; 2023-05-20 12:00)
DX: L57.0 Actinic keratosis (principal); J44.9 Chronic obstructive pulmonary disease, unspecified; L57.8 Other skin changes due to chronic exposure to nonionizing radiation; L90.5 Scar conditions and fibrosis of skin; Z79.899 Other long term (current) drug therapy; I10 Essential (primary) hypertension; F17.200 Nicotine dependence, unspecified, uncomplicated; Z85.828 Personal history of other malignant neoplasm of skin
CPT/HCPCS: 11403; 12032; 88305; 88331; 88332

== ENCOUNTER → 2023-09-12 | Outpatient (CLI) | payer MEDICARE, SELFPAY | END | disposition home or self-care (01) | LOC: SL 19:44 | PROVIDERS: Referring Provider Internal Medicine Critical Care Medicine; Visit Provider Internal Medicine Critical Care Medicine | DX: G47.33 Obstructive sleep apnea (adult) (pediatric) (principal) | CPT/HCPCS: 95810 ==

== ENCOUNTER 2023-10-13 07:54 | Day surgery (SDC) | payer MEDICARE, SELFPAY ==
[2023-10-13 08:11] VITALS: BP 160/88; PULSE 63; RESP 18; TEMP 36.3; O2SAT 95; BMI 27.3
--- NOTE | 2023-10-13 09:44 | PCM.HP.BLA ---
History and Physical Date of Admission: 10/13/23 The patient is examined and there are no changes to the H&P dated 10/12/2023. He presents with a suspicious lesion of his right lower leg. Informed consent was obtained. The specimen will be sent to pathology for evaluation. We will perform excision lesion of the right lower leg. Assessment & Plan Assessment/Plan (1) Neoplasm of uncertain behavior of skin of lower leg: PLAN: Plan For excision of the lesion of the right leg with submission for pathologic evaluation.
--- NOTE | 2023-10-13 09:50 | LES_PTH ---
PATIENT: LIZZ MARMOLEJO LOC: [facility] – [place] U#:[id number] AGE/SX: 67/M ROOM: RE10/13/[address]: Dr. Natasha Huerta MD : 1955 BED: DIS: 10/13/2023 SPEC #: [id number] RECD: 10/13/23 13:28 STATUS: YAZMIN CHICHO #: [id number] CARLOS ENRIQUE: 10/13/23 09:[address]: Natasha Huerta DEPT: SURGICAL PATHOLOGY RECD BY: Ranulfo Gonsalez ENTERED: 10/13/23 13:54 SP TYPE: Lesion OTHR DR: No Primary Care Phys Tissues: Skin of leg, NOS Procedures: Surgery Specimen Level IV HEADER OPERATION: Excision lesion right lower leg (3.0mm) PRE-OP DIAGNOSIS: Neoplasm of uncertain behavior of skin of lower leg TISSUE SUBMITTED: Lesion right anterior ambrocio MICROSCOPIC DIAGNOSIS Right anterior ambrocio lesion, excisional biopsy: Invasive well differentiative squamous cell carcinoma, completely excised in the planes of sections examined. See comment. / 10/14/2023 COMMENT The tumor is 0.2cm away from the deep margin and 0.3cm away from the closest peripheral margin of the specimen. Perineural invasion is not seen. Case has been reviewed in consultation with Dr. Segura who concurs with the above diagnosis. IDC:AM MICROSCOPIC DESCRIPTION Slides are reviewed. GROSS DESCRIPTION Received in fixative is one container labeled with the patient's name and designated Lesion right anterior ambrocio. The specimen consists of faust white skin ellipse measuring 2.2 x 1.5cm and up to 0.5cm in thickness. The specimen is inked, serially sectioned and submitted entirely in one cassette. [facility] 10/13/2023 TC:0 CPT:43862
[2023-10-13 10:09] VITALS: BP 155/101; BP 159/86; O2SAT 92; O2SAT 93; O2SAT 94; O2SAT 95; O2SAT 96
[2023-10-13] MEDS: Lidocaine 1% /Epi 1:100 9 ML, Sodium Bicarbonate 1 MEQ OPERA.SITE (10:47)
--- NOTE | 2023-10-13 11:07 | DCINST_ITS ---
Discharge Instructions Dressing / Incision Additional Dressing/Incision Instructions:: Keep your leg elevated to help decrease swelling. You can leave the dressing in place until seen in the office or you can change it daily with antibiotic ointment, gauze, and a wrap. Loosen the wrap if it feels tight. Take the antibiotic until finished. Follow Up Care Please Follow Up With: Natasha Huerta MD When: In 2 weeks Test Results: Test results from this visit will be discussed in further detail at your follow- up appointment, if applicable. Discharge Plan Admission Attending Provider: Natasha Huerta Primary Care Provider: Care PhysicianMiroslava Primary Instructions Print Language: Slovenian Discharge Orders/Prescriptions Prescriptions: No Action cyclobenzaprine 10 mg tablet 10 mg PO BID PRN (Reason: muscle spasm) Patient Comments: TAKE 1 TABLET ONCE OR TWICE DAILY NEEDED FOR SPASMS lisinopril 20 mg tablet 20 mg PO DAILY omeprazole 20 mg capsule,delayed release(DR/EC) 20 mg PO DAILY albuterol sulfate 90 mcg/actuation HFA aerosol inhaler inhalation oxycodone 10 mg tablet 10 mg PO TID PRN (Reason: pain) Breztri Aerosphere 160-9-4.8 mcg/actuation HFA aerosol inhaler 2 inh inhalation BID Qty: 10.7 6RF cephalexin 500 mg capsule 500 mg PO BID Qty: 14 0RF metoprolol succinate 25 mg tablet extended release 24 hr 25 mg PO DAILY Referrals / Follow Up: Care Physician,No Primary [Primary Care Provider] - Disposition Disposition (needs filled in before D/C Order can be placed): Home, Self Care
--- NOTE | 2023-10-13 11:10 | PCM.OPRPT ---
Problems Associated Problem List Diagnoses (1) Neoplasm of uncertain behavior of skin of lower leg: Report of Operation Date of Procedure: 10/13/23 Pre-Operative Diagnosis: Neoplasm right anterior ambrocio Post-Operative Diagnosis: Same Surgery/Procedure Performed:: Excision lesion right anterior ambrocio (4.0 cm) Surgeon: Natasha Huerta Type of Anesthesia: Local Specimen's removed: Neoplasm ambrocio Estimated Blood Loss (mL): Minimal Description of Procedure: The patient presents with a 2-week history of a lesion of his right anterior ambrocio. He presents for excision of the lesion with submission for pathologic evaluation. He is aware the potential need for further surgery depending on the resulting pathology. Patient was brought to the operating room and placed on the operating room table in the supine position. The right chin is prepped and draped in the usual sterile fashion. 1% Xylocaine with epinephrine buffered with sodium bicarb is used to inject the periphery of the site. Following this, an Ellman cautery was used to excise the lesion. Hemostasis is controlled with cautery. The wound is then closed. 3-0 silk is used initially to approximate the wound. Following this, a chromic suture was used to refine the skin closure in a running fashion. Xeroform, gauze, and a Coban wrap is used to dress the site. He tolerated procedure well was taken to the recovery area in an awake and stable condition. Needle and sponge counts are correct. Complications None Admit VTE Documentation VTE Mechan Device Prophylaxis: None Reason prophylaxis not ordered:: Treatment Not Indicated
== END 2023-10-13 11:26 | disposition home or self-care (01) ==
LOC: SDC 07:56 → AC 07:58
PROVIDERS: Referring Provider Plastic Surgery; Visit Provider Plastic Surgery
PROC: (CPT 11406; principal; 2023-10-13 09:40)
DX: D48.5 Neoplasm of uncertain behavior of skin (principal); Z79.899 Other long term (current) drug therapy
CPT/HCPCS: 11406; 88305

== ENCOUNTER → 2024-04-05 | Outpatient (CLI) | payer MEDICARE, SELFPAY ==
--- NOTE | 2024-04-05 12:53 | CT_ITS ---
STUDY: LOW DOSE CT LUNG CANCER SCREENING REASON FOR EXAM: Male, 68 years old. h/o Tobacco Dependency RADIATION DOSAGE (If Supplied By Facility): CTDIvol = ( 3.02 ) mGy, DLP = ( 105.33 ) mGycm TECHNIQUE: No contrast was administered. Low dose technique was utilized (average mAS-38 and kVp 120). 1.25 mm axial source images with a slice interval of 1.25-mm were reconstructed in lung windows. 2.5 mm axial source images with a slice interval of 2.5-mm were reconstructed in lung windows. 5.0 mm axial source images with a slice interval of 5.0-mm were reconstructed in soft tissue windows. COMPARISON: Prior study dated: 03/22/2023 NODULES: Nodule #: 1 Density: Solid Lung location: Right middle lobe: 0.9 cm from pleura Location in series: Series Number: 2 Image: 161 Size -0.8 x 0.4 cm, 0.6 cm average diameter. Margin: Smooth Shape: Ovoid Calcification: None Fat: None Temporal comparison: Unchanged Total lung nodules (excluding granulomas): 1 Emphysema: Severe centrilobular and paraseptal emphysema. Endobronchial lesion: Secretions noted in the trachea. Aorta: Normal caliber. No dissection. CORONARY ARTERIES: Coronary artery calcification is seen. Heart: Normal heart size. No pericardial effusion. Pulmonary artery: Normal caliber. Mediastinal nodes: Calcified mediastinal and hilar lymph nodes, consistent with prior granulomatous disease. Other chest and abdominal findings: Calcified granuloma in the lungs. Fat containing left diaphragmatic hernia again noted. No adrenal mass seen. CT/Low Dose CT Lung Screening IMPRESSION: Lung-RADS category 2 - Continue annual screening with LDCT in 12 months. There is a nodule seen in the right middle lobe, though this is unchanged since prior imaging. No new pulmonary nodule identified. Evidence of prior granulomatous disease. IMPORTANT NOTES FOR USE: ACR Lung-RADS Version 1.1 Assessment Categories Release Date: 2018 Category: Coded 0-4 bases on nodule(s) with highest degree of suspicion. Negative screen is defined as categories 1 and 2; a positive screen is defined as categories 3 and 4. Category 3 and 4A nodules that are unchanged on interval CT should be coded as category 2, and individuals returned to screening in 12 months. Category 4X: Category 3 or 4 nodules with additional imaging findings that increase the suspicion of lung cancer, such as spiculation, GGN that doubles in size in 1 year, enlarged lymph notes, etc. Category Modifiers: S (significant finding unrelated to lung cancer) Electronically Signed: Zhou Jackson MD at 23:07 EST ,
[2024-04-05 12:57] LABS: Platelet Count 305 K/mm3 (150-450)
[2024-04-05 13:10] LABS: Partial Thromboplast Time 29.1 Seconds (24.1-36.2); Prothrombin Time (Protime)PT. 13.1 SECONDS (11.7-14.9)
== END | disposition home or self-care (01) ==
LOC: CT 12:43
PROVIDERS: Nurse Practitioner Acute Care; Referring Provider Internal Medicine Critical Care Medicine; Visit Provider Internal Medicine Critical Care Medicine
DX: Z01.818 Encounter for other preprocedural examination (principal); F17.211 Nicotine dependence, cigarettes, in remission
CPT/HCPCS: 36415; 71271; 85049; 85610; 85730

== ENCOUNTER 2024-09-14 11:45 | Day surgery (SDC) | payer MEDICARE, SELFPAY ==
[2024-09-14 12:08] VITALS: BP 161/84; PULSE 78; RESP 16; TEMP 37.2; O2SAT 91; BMI 27.8
--- NOTE | 2024-09-14 12:16 | PCM.HP.BLA ---
History and Physical Date of Admission: 09/14/24 The patient presents with a neoplasm of the right thigh with recent growth of change. The history and physical is unchanged from the evaluation of 09/12/2024. An informed consent is obtained for excision of the neoplasm of the right thigh. The specimen will be sent to pathology for evaluation. He is marked in the preop holding area prior to surgery. Assessment & Plan Assessment/Plan (1) Neoplasm of uncertain behavior of skin of thigh: PLAN: Plan For excision neoplasm right thigh.
[2024-09-14 12:39] VITALS: BP 147/82; O2SAT 94
[2024-09-14 12:43] VITALS: BP 157/92; O2SAT 93; O2SAT 94
--- NOTE | 2024-09-14 12:50 | LES_PTH ---
PATIENT: LIZZ MARMOLEJO LOC: [facility] [place] U#:[id number] AGE/SX: 68/M ROOM: RE09/14/[address]: Dr. Natasha Huerta MD : 1955 BED: DIS: 09/14/2024 SPEC #: [id number] RECD: 09/14/24 13:26 STATUS: YAZMIN CHICHO #: [id number] CARLOS ENRIQUE: 09/14/24 12:[address]: Natasha Huerta DEPT: SURGICAL PATHOLOGY RECD BY: Nicola Melgar ENTERED: 09/14/24 14:33 SP TYPE: Lesion OTHR DR: No Primary Care Phys Tissues: A - Skin of leg, NOS Procedures: Surgery Specimen Level IV HEADER OPERATION: Excision neoplasm of right thigh (3cm) intermediate closure PRE-OP DIAGNOSIS: Neoplasm of uncertain behavior of skin of thigh TISSUE SUBMITTED: A- Neoplasm of right thigh MICROSCOPIC DIAGNOSIS A. Skin, right thigh, excision: * Benign verrucal keratosis - see Comment. COMMENT Selected slides/images were reviewed in intradepartmental consultation by Dr Miguel Ángel Weir (dermatopathology division, [facility]). MICROSCOPIC DESCRIPTION Slides are reviewed. GROSS DESCRIPTION A. Received in formalin in a container labeled with the patient's name, date of , and neoplasm right thigh is a 1.8 x 1.4 cm unoriented and elliptical faust skin excision with a depth up to 0.8 cm. The epidermis is notable for a 0.7 x 0.7 x 0.4 cm white-knox, ill-defined nodule with a 0.3 x 0.3 cm indurated and semitranslucent center. The nodule is situated 0.2 cm from the peripheral margin. The deep margin is inked green, and serial sections reveal irregular, indurated faust-knox surfaces that appear to extend approximately 0.2 cm deep, remaining 0.6 cm from the deep margin. Submitted entirely as follows:A1. Tips, en faceA2. Midportion of specimen [facility] 09-17-2024 CPT:81670
[2024-09-14] MEDS: Lidocaine 1% /Epi 1:100 9 ML, Sodium Bicarbonate 1 MEQ OPERA.SITE (12:51)
--- NOTE | 2024-09-14 13:15 | DCINST_ITS ---
Discharge Instructions Dressing / Incision Additional Dressing/Incision Instructions:: Keep your leg elevated is much as possible to help decrease swelling. Take the oral antibiotic as directed. Leave the dressing in place until seen in the office. You may shower over the dressing but do not scrub. Follow Up Care Please Follow Up With: Natasha Huerta MD When: 1 to 2-week Test Results: Test results from this visit will be discussed in further detail at your follow- up appointment, if applicable. Discharge Plan Admission Attending Provider: Natasha Huerta Primary Care Provider: Care PhysicianMiroslava Primary Instructions Print Language: Tunisian Discharge Orders/Prescriptions Prescriptions: No Action cyclobenzaprine 10 mg tablet 10 mg PO BID PRN (Reason: muscle spasm) Patient Comments: TAKE 1 TABLET ONCE OR TWICE DAILY NEEDED FOR SPASMS lisinopril 20 mg tablet 20 mg PO DAILY omeprazole 20 mg capsule,delayed release(DR/EC) 20 mg PO DAILY PRN (Reason: gerd) albuterol sulfate 90 mcg/actuation HFA aerosol inhaler inhalation oxycodone 10 mg tablet 10 mg PO TID PRN (Reason: pain) hydromorphone 2 mg tablet 2 mg PO TID PRN (Reason: pain) Breztri Aerosphere 160-9-4.8 mcg/actuation HFA aerosol inhaler 2 inh inhalation BID Qty: 3 3RF metoprolol succinate 25 mg tablet extended release 24 hr 25 mg PO DAILY Referrals / Follow Up: Care Physician,No Primary [Primary Care Provider] - Disposition Disposition (needs filled in before D/C Order can be placed): Home, Self Care
--- NOTE | 2024-09-14 13:16 | OP.PCM_ITS ---
Problems Associated Problem List Diagnoses (1) Neoplasm of uncertain behavior of skin of thigh: Operative Report (Standard) Operative Information Date of Procedure: 09/14/24 Pre-Operative Diagnosis: Neoplasm right thigh skin of uncertain behavior Post-Operative Diagnosis: Same Surgery/Procedure Performed: Excision neoplasm right thigh (3.5 cm) with intermediate closure electrolysis needle operator: No Type of Anesthesia: Local RN Documented Start/Stop Times: Operation Date: 09/14/24 12:50 Case Time Into Pre-Op 09/14/24 11:56 Out of Pre-Op 09/14/24 12:33 Into Room 09/14/24 12:36 Procedure Start 09/14/24 12:51 Procedure End 09/14/24 13:10 Out of Room 09/14/24 13:11 Procedure Start Time: 12:51 Procedure Stop Time: 13:10 Select all DRAINS/GRAFTS/IMPLANTS that apply: None Estimated Blood Loss: Minimal Specimen collected: Yes Description of specimen(s) removed: Neoplasm of skin of thigh Description of surgery: The patient presents with a new onset of an enlarging lesion of the right thigh. He presents for excision of the neoplasm and submission for pathologic evaluation. The patient is brought to the operating room and placed on the operating room table in the supine position. The right thigh is prepped and draped in usual sterile fashion. 1% Xylocaine with epinephrine buffered with sodium bicarb is used for local anesthetic. Following this, the site is elliptically excised and passed off the operative field to be sent to pathology. Hemostasis is controlled with cautery. The wound is then closed in layers using [id number] Monocryl suture in the subcutaneous tissue and dermis. Skin edges are approximated with a running subcuticular Monocryl suture. Further r einforcement the closure is done with a running Prolene suture. Dermabond and Steri-Strips along with the Tegaderm is used for the dressing. He tolerated the procedure well and was taken to the recovery room in awake and stable condition. Needle and sponge counts are correct. Surgical Findings: As above Complications Complications: No Admit VTE Documentation VTE Pharm Prophylaxis ordered?: No Reason prophylaxis not ordered: Treatment Not Indicated
[2024-09-14 13:19] VITALS: BP 152/99; BP 161/84; PULSE 74; RESP 16; TEMP 37.7; O2SAT 91
== END 2024-09-14 13:40 | disposition home or self-care (01) ==
LOC: SDC 11:46 → AC 11:49
PROVIDERS: Referring Provider Plastic Surgery; Visit Provider Plastic Surgery
PROC: (CPT 11404; principal; 2024-09-14 12:40)
DX: L57.0 Actinic keratosis (principal); J44.9 Chronic obstructive pulmonary disease, unspecified; Z79.899 Other long term (current) drug therapy; Z79.51 Long term (current) use of inhaled steroids; K21.9 Gastro-esophageal reflux disease without esophagitis; I10 Essential (primary) hypertension; Z87.891 Personal history of nicotine dependence; Z85.828 Personal history of other malignant neoplasm of skin
CPT/HCPCS: 11404; 12032; 88305

== ENCOUNTER → 2025-04-08 | Outpatient (CLI) | payer MEDICARE, SELFPAY ==
--- NOTE | 2025-04-08 14:56 | CT_ITS ---
PROCEDURE: LOW DOSE CT LUNG SCREENING 04/08/2025 REASON FOR EXAM: SMOKING GREATER THAN 40PACK YEARS TECHNIQUE: Procedure Code: [id number] Modality: CT Procedure: LOW DOSE CT LUNG SCREENING Coronal and Sagittal reconstruction series were provided. One or more dose reduction techniques were used (e.g., Automated exposure control, adjustment of the mA and/or kV according to patient size, use of iterative reconstruction technique). REFERENCE LINK: [facility] Lung-RADS COMPARISON: CT chest 04/05/2024, 03/22/2023 FINDINGS: PULMONARY NODULES: (Only nodules >3mm are reported) Pulmonary Nodules: Stable right middle lobe nodule 9 mm from the pleura measuring 8 x 4 mm (series 2, image 162). Unchanged calcified granuloma measuring 10 x 9 mm in the posterior right upper lung. Hardware:None. Lymph Nodes:Redemonstrated calcified mediastinal and hilar lymph nodes consistent with prior granulomatous disease. No enlarged mediastinal, hilar, or axillary lymph nodes. Heart and Vasculature:Nonenlarged. No pericardial effusion. Mild coronary artery atherosclerotic calcifications.Atherosclerotic calcifications of the thoracic aorta. Thoracic aorta and pulmonary arteries have normal contours; noncontrast technique limits evaluation. Coronary Artery Calcifications: Lungs and Airways: Advanced emphysematous changes are present. No focal consolidation. Airways are patent. Pleura:No pleural effusion or pneumothorax. Upper Abdomen:Redemonstrated left diaphragmatic hernia containing fat. Visualized upper abdomen otherwise unremarkable. Bones:Degenerative changes of the thoracic spine. No acute fractures. CT/Low Dose CT Lung Screening IMPRESSION: Stable right middle lobe nodule measuring 8 x 4 mm. Lung-RADS Category: 2 BENIGN (BASED ON IMAGING FEATURES OR INDOLENT BEHAVIOR). RECOMMEND 12-MONTH SCREENING LDCT. Reading Location[facility]
== END | disposition home or self-care (01) ==
LOC: CT 14:54
PROVIDERS: Referring Provider Nurse Practitioner Family; Visit Provider Nurse Practitioner Family
DX: F17.210 Nicotine dependence, cigarettes, uncomplicated (principal)
CPT/HCPCS: 71271